=== PATIENT | female | born 1990 | race African-American/Black ===

== ENCOUNTER 2016-11-02 03:45 | Emergency (ER) | payer MEDICAID ==
[~2016-11-02] VITALS: Ht 160 cm; Wt 65.0 kg
[~2016-11-02 03:45] MED LIST: PRED20 PO; RITO100 PO
[2016-11-02 03:46] VITALS: BP 128/81; PULSE 78; RESP 22; TEMP 97.9; O2SAT 97
[2016-11-02] MEDS ORDERED: SODIUM CHLOR 0.9% 1000 ML INJ 1,000 ML IV SCH (04:10)
[2016-11-02] MEDS ORDERED: SODIUM CHLORIDE 0.9% FLUSH 10 ML FLUSH IV FLUSH PRN (04:15)
[2016-11-02] MEDS ORDERED: KETOROLAC TROMETHAMINE 30 MG/ML (IVP) VIAL IV PUSH ONE (04:15)
[2016-11-02] MEDS ORDERED: MORPHINE SULFATE 4 MG/ML INJ IV PUSH ONE (04:15)
[2016-11-02 04:36] LABS: AUTOMATED NEUTROPHIL # 7.1 TH/MM3 (1.8-7.7); BASOPHIL % 0.5 % (0.0-2.0); EOSINOPHIL # 0.1 TH/MM3 (0-0.4); EOSINOPHIL % 0.7 % (0.0-4.0); HEMATOCRIT 36.4 % (35.0-46.0); LYMPH % 19.5 % (9.0-44.0); LYMPHOCYTE # 1.9 TH/MM3 (1.0-4.8); MEAN CELL VOLUME 101.1 FL (80.0-100.0); MEAN CORPUSCULAR HGB CONC 33.6 % (32.0-36.0); MONO % 7.4 % (0.0-8.0); NEUT % 71.9 % (16.0-70.0); PLATELET COUNT 200 TH/MM3 (150-450); WHITE BLOOD COUNT 9.8 TH/MM3 (4.0-11.0)
[2016-11-02 04:38] LABS: BACTERIA, URINE RARE /hpf; BLOOD, URINE SMALL (NEG); COMMENT (UR) CULTURE INDICATED; CULTURE IF INDICATED CULTURE INDICATED; GLUCOSE,URINE NEG (NEG); HYALINE CAST, URINE 13 /lpf (RARE); KETONE, URINE NEG (NEG); MUCUS URINE FEW /lpf (OCC); NITRITE,URINE NEG (NEG); PH, URINE 6.5 (5.0-8.5); SQUAMOUS EPITHELIAL CELL URINE 3 /hpf (0-5); URINE COLOR YELLOW (YELLW/STRAW)
[2016-11-02 04:40] LABS: HEMO FLAGS AUTO DIFF
--- NOTE | 2016-11-02 04:40 | PD ---
HPI Chief Complaint: Abdominal Pain Time Seen by Provider: 04:06 Travel History International Travel<30 days: No Contact w/Intl Traveler<30days: No Traveled to known affect area: No History of Present Illness HPI This is a 26-year-old female who presents to the emergency department with severe pain in her lower abdomen, constant for a day and a half, feeling like contractions. She also says she's had a foul-smelling discharge from her vagina. She denies any fevers or chills. Over the past week she's had some lower abdominal cramping but it got must worse in the past day. She doesn' t think she is because she's had intermittent spotting over the past several months but she's been under a lot of stress and she says maybe she could be about 3-4 months she's not sure. She does have HIV and doesn' t take any antiretrovirals. She has 4 children. PFSH Past Medical History Heart Rhythm Problems: No Cardiovascular Problems: No Chest Pain: No Congestive Heart Failure: No Diminished Hearing: No Musculoskeletal: No Neurologic: No ?: Unknown LMP: 07/18/16 : 4 Para: 4 Past Surgical History Section: No Social History Alcohol Use: Yes (occasional) Tobacco Use: Yes Substance Use: No Allergies-Medications (Allergen,Severity, Reaction): Coded Allergies: White Fish (Verified Allergy, Intermediate, 11/02/16) Uncoded Allergies: fish (Allergy, Severe, Swelling, 01/23/16) Reported Meds & Prescriptions Reported Meds & Active Scripts Active Prednisone 20 Mg Tab 40 Mg PO DAILY 3 Days Reported Norvir (Ritonavir) 100 Mg Cap 300 Mg PO DAILY Review of Systems Except as stated in HPI: all other systems reviewed are Neg Physical Exam Narrative GENERAL: Crying in pain, restless in the bed SKIN: Focused skin assessment warm and dry. HEAD: Atraumatic. Normocephalic. EYES: Pupils equal and round. No injection or drainage. ENT: Moist mucous membranes NECK: Trachea midline. CARDIOVASCULAR: Regular rate and rhythm. No murmur appreciated. RESPIRATORY: Clear to auscultation. Breath sounds equal bilaterally. GASTROINTESTINAL: Abdomen soft, tender to palpation in the lower abdomen with guarding. 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 NEUROLOGICAL: Awake and alert. No obvious cranial nerve deficits. Moving all extremities. PSYCHIATRIC: Appropriate mood and affect; insight and judgment normal. Data Data Last Documented VS Vital Signs Date Time Temp Pulse Resp B/P Pulse Ox O2 Delivery O2 Flow Rate FiO2 11/02/16 03:46 97.9 78 22 128/81 97 Room Air Orders Complete Blood Count With Diff (11/02/16 04:10) Comprehensive Metabolic Panel (11/02/16 04:10) Lipase (11/02/16 04:10) Urinalysis - C+S If Indicated (11/02/16 04:10) Iv Access Insert/Monitor (11/02/16 04:10) Ecg Monitoring (11/02/16 04:10) Oximetry (11/02/16 04:10) Morphine Inj (Morphine Inj) (11/02/16 04:15) Sodium Chlor 0.9% 1000 Ml Inj (Ns 1000 M (11/02/16 04:10) Sodium Chloride 0.9% Flush (Ns Flush) (11/02/16 04:15) Ed Urine Pregnancytest Poc (11/02/16 04:10) Ketorolac Inj (Toradol Inj) (11/02/16 04:15) Ed Poc Ultrasound (11/02/16 ) Us Pelvis (Ques Preg/Ectopic) (11/02/16 ) Blood Culture (11/02/16 04:35) Ondansetron Inj (Zofran Inj) (11/02/16 04:45) Urine Culture (11/02/16 04:20) Morphine Inj (Morphine Inj) (11/02/16 04:45) Wet Prep Profile (11/02/16 04:52) Gc And Chlamydia Pcr (11/02/16 04:52) Beta Hcg (Quant/Titer) (11/02/16 05:28) Cefoxitin Inj (Mefoxin Inj) (11/02/16 05:45) Azithromycin Powd Pack (Zithromax Powd P (11/02/16 05:45) Sodium Chlor 0.9% 1000 Ml Inj (Ns 1000 M (11/02/16 05:45) Labs Laboratory Tests Test 11/02/16 11/02/16 04:20 04:30 White Blood Count 9.8 TH/MM3 Red Blood Count 3.60 MIL/MM3 Hemoglobin 12.2 GM/DL Hematocrit 36.4 % Mean Corpuscular Volume 101.1 FL Mean Corpuscular Hemoglobin 34.0 PG Mean Corpuscular Hemoglobin 33.6 % Concent Red Cell Distribution Width 13.0 % Platelet Count 200 TH/MM3 Mean Platelet Volume 8.9 FL Neutrophils (%) (Auto) 71.9 % Lymphocytes (%) (Auto) 19.5 % Monocytes (%) (Auto) 7.4 % Eosinophils (%) (Auto) 0.7 % Basophils (%) (Auto) 0.5 % Neutrophils # (Auto) 7.1 TH/MM3 Lymphocytes # (Auto) 1.9 TH/MM3 Monocytes # (Auto) 0.7 TH/MM3 Eosinophils # (Auto) 0.1 TH/MM3 Basophils # (Auto) 0.0 TH/MM3 CBC Comment AUTO DIFF Differential Comment AUTO DIFF CONFIRMED Platelet Estimate NORMAL Platelet Morphology Comment NORMAL Urine Color YELLOW Urine Turbidity HAZY Urine pH 6.5 Urine Specific [place] 1.033 Urine Protein 100 mg/dL Urine Glucose (UA) NEG mg/dL Urine Ketones NEG mg/dL Urine Occult Blood SMALL Urine Nitrite NEG Urine Bilirubin NEG Urine Urobilinogen 2.0 MG/DL Urine Leukocyte Esterase LARGE Urine RBC 21 /hpf Urine WBC 33 /hpf Urine Squamous Epithelial 3 /hpf Cells Urine Bacteria RARE /hpf Urine Hyaline Casts 13 /lpf Urine Mucus FEW /lpf Microscopic Urinalysis Comment CULTURE INDICATED Sodium Level 136 MEQ/L Potassium Level 3.8 MEQ/L Chloride Level 102 MEQ/L Carbon Dioxide Level 24.4 MEQ/L Anion Gap 10 MEQ/L Blood Urea Nitrogen 12 MG/DL Creatinine 0.89 MG/DL Estimat Glomerular Filtration 93 ML/MIN Rate Random Glucose 83 MG/DL Calcium Level 9.2 MG/DL Total Bilirubin 0.3 MG/DL Aspartate Amino Transf 14 U/L (AST/SGOT) Alanine Aminotransferase 19 U/L (ALT/SGPT) Alkaline Phosphatase 108 U/L Total Protein 8.4 GM/DL Albumin 3.3 GM/DL Lipase 63 U/L Human Chorionic Gonadotropin, 974[address] MIU/ML Quant Clue Cells (Wet Prep) PRESENT Vaginal Trichomonas (Wet Prep) NONE SEEN Vaginal Yeast (Wet Prep) NONE SEEN MDM Medical Decision Making Medical Screen Exam Complete: Yes Emergency Medical Condition: Yes Interpretation(s) Afebrile, no tachycardia, normotensive No leukocytosis Electrolytes are reassuring Lipase is normal HCG is 40,000 Urinalysis demonstrates infection Wet prep is positive for clue cells Differential Diagnosis Threatened miscarriage, incomplete miscarriage, complete miscarriage, ectopic , pelvic inflammatory disease, septic Narrative Course This is a 26 year old female who has a history of HIV who presents to the emergency department with severe lower abdominal cramping in the setting of . I performed a bedside ultrasound and she appears to be about 11 weeks with a fetus with normal heart rate. Her pelvic exam is concerning with pooling purulent malodorous fluid in the vault. In the absence of an alternate explanation I'm concerned this is pelvic inflammatory disease given her degree of discomfort and her abnormal pelvic exam. I think in the setting of a viable the patient should be admitted for IV antibiotics. She was given a dose of cefotetan and azithromycin in the emergency department. Formal ultrasound will be obtained at the request of the OB hospitalist. Procedures Procedure Narrative [id number] ultrasound: Intrauterine , active fetus, heart rate is 142 Diagnosis Primary Impression: Threatened miscarriage Additional Impression: Pelvic inflammatory disease Admitting Information Admitting Physician Requests: Observation Lori Chang MD Nov 02, 2016 04:40
[2016-11-02] MEDS ORDERED: MORPHINE SULFATE 8 MG/ML INJ IV PUSH ONE ×2 (04:45→07:45)
[2016-11-02] MEDS ORDERED: ONDANSETRON HCL 4 MG/2 ML VIAL IV ONE (04:45)
[2016-11-02 04:46] LABS: ANION GAP 10 MEQ/L (5-15); AST (GOT) 14 U/L (15-37); BICARBONATE 24.4 MEQ/L (21.0-32.0); BLOOD UREA NITROGEN 12 MG/DL (7-18); CHLORIDE 102 MEQ/L (98-107); GLOMERULAR FILTRATION RATE 93 ML/MIN (>89); POTASSIUM 3.8 MEQ/L (3.5-5.1); SODIUM (NA) 136 MEQ/L (136-145)
[2016-11-02 04:47] LABS: ALT (GPT) 19 U/L (10-53)
[2016-11-02 04:49] LABS: ALKALINE PHOSPHATASE 108 U/L (45-117); TOTAL BILIRUBIN ADULT 0.3 MG/DL (0.2-1.0)
[2016-11-02 05:15] LABS: PLATELET ESTIMATE SMEAR NORMAL (NORMAL); PLATELET MORPHOLOGY NORMAL (NORMAL); SCAN/DIFF AUTO DIFF CONFIRMED
[2016-11-02] MEDS ORDERED: SODIUM CHLOR 0.9% 1000 ML INJ 1,000 ML IV ONE (05:45)
[2016-11-02] MEDS ORDERED: ceFOXitin INJ 2 GM in SODIUM CHLORIDE 0.9% INJ 100 ML IV ONE (05:45)
[2016-11-02] MEDS ORDERED: AZITHROMYCIN PWD FOR SUSP 1 GM PACKET PO ONE (05:45)
[2016-11-02 06:04] LABS: BETA HCG QUANT 40091 MIU/ML (0-5)
[2016-11-02] MEDS ORDERED: MORPHINE SULFATE 4 MG/ML INJ IV ONE (07:30)
--- NOTE | 2016-11-02 07:31 | PD ---
Physical Exam Date Seen by Provider: Nov 02, 2016 Time Seen by Provider: 07:00 Narrative The patient was signed out to me by Dr. Chang changes shift. Please see her H& P for specific details. The patient is and has HIV disease that's gone untreated. The patient had purulent bloody discharge noted in her vaginal vault. The patient will be admitted to the hospital. Ultrasound is pending at this time. She has been premedicated with 2 doses of IVD morphine for pain control. She's also been given antibiotics. Data Data Last Documented VS Vital Signs Date Time Temp Pulse Resp B/P Pulse Ox O2 Delivery O2 Flow Rate FiO2 11/02/16 08:15 85 18 118/78 98 Room Air 11/02/16 03:46 97.9 Orders Complete Blood Count With Diff (11/02/16 04:10) Comprehensive Metabolic Panel (11/02/16 04:10) Lipase (11/02/16 04:10) Urinalysis - C+S If Indicated (11/02/16 04:10) Iv Access Insert/Monitor (11/02/16 04:10) Ecg Monitoring (11/02/16 04:10) Oximetry (11/02/16 04:10) Morphine Inj (Morphine Inj) (11/02/16 04:15) Sodium Chlor 0.9% 1000 Ml Inj (Ns 1000 M (11/02/16 04:10) Sodium Chloride 0.9% Flush (Ns Flush) (11/02/16 04:15) Ed Urine Pregnancytest Poc (11/02/16 04:10) Ketorolac Inj (Toradol Inj) (11/02/16 04:15) Ed Poc Ultrasound (11/02/16 ) Blood Culture (11/02/16 04:35) Ondansetron Inj (Zofran Inj) (11/02/16 04:45) Urine Culture (11/02/16 04:20) Morphine Inj (Morphine Inj) (11/02/16 04:45) Wet Prep Profile (11/02/16 04:52) Gc And Chlamydia Pcr (11/02/16 04:52) Beta Hcg (Quant/Titer) (11/02/16 05:28) Cefoxitin Inj (Mefoxin Inj) (11/02/16 05:45) Azithromycin Powd Pack (Zithromax Powd P (11/02/16 05:45) Sodium Chlor 0.9% 1000 Ml Inj (Ns 1000 M (11/02/16 05:45) Type And Screen (11/02/16 06:54) Us Pelvis (Ques Pr/Ect)W Trans (11/02/16 ) Morphine Inj (Morphine Inj) (11/02/16 07:30) Morphine Inj (Morphine Inj) (11/02/16 07:45) Metronidazole 500 Mg Inj (Flagyl 500 Mg (11/02/16 08:00) Consult Obstetrics (11/02/16 ) (Hub Use Only)Inp Phy Cons/Ref (11/02/16 ) Labs Laboratory Tests Test 11/02/16 11/02/16 11/02/16 04:20 04:30 07:45 White Blood Count 9.8 TH/MM3 Red Blood Count 3.60 MIL/MM3 Hemoglobin 12.2 GM/DL Hematocrit 36.4 % Mean Corpuscular Volume 101.1 FL Mean Corpuscular Hemoglobin 34.0 PG Mean Corpuscular Hemoglobin 33.6 % Concent Red Cell Distribution Width 13.0 % Platelet Count 200 TH/MM3 Mean Platelet Volume 8.9 FL Neutrophils (%) (Auto) 71.9 % Lymphocytes (%) (Auto) 19.5 % Monocytes (%) (Auto) 7.4 % Eosinophils (%) (Auto) 0.7 % Basophils (%) (Auto) 0.5 % Neutrophils # (Auto) 7.1 TH/MM3 Lymphocytes # (Auto) 1.9 TH/MM3 Monocytes # (Auto) 0.7 TH/MM3 Eosinophils # (Auto) 0.1 TH/MM3 Basophils # (Auto) 0.0 TH/MM3 CBC Comment AUTO DIFF Differential Comment AUTO DIFF CONFIRMED Platelet Estimate NORMAL Platelet Morphology Comment NORMAL Urine Color YELLOW Urine Turbidity HAZY Urine pH 6.5 Urine Specific [place] 1.033 Urine Protein 100 mg/dL Urine Glucose (UA) NEG mg/dL Urine Ketones NEG mg/dL Urine Occult Blood SMALL Urine Nitrite NEG Urine Bilirubin NEG Urine Urobilinogen 2.0 MG/DL Urine Leukocyte Esterase LARGE Urine RBC 21 /hpf Urine WBC 33 /hpf Urine Squamous Epithelial 3 /hpf Cells Urine Bacteria RARE /hpf Urine Hyaline Casts 13 /lpf Urine Mucus FEW /lpf Microscopic Urinalysis Comment CULTURE INDICATED Sodium Level 136 MEQ/L Potassium Level 3.8 MEQ/L Chloride Level 102 MEQ/L Carbon Dioxide Level 24.4 MEQ/L Anion Gap 10 MEQ/L Blood Urea Nitrogen 12 MG/DL Creatinine 0.89 MG/DL Estimat Glomerular Filtration 93 ML/MIN Rate Random Glucose 83 MG/DL Calcium Level 9.2 MG/DL Total Bilirubin 0.3 MG/DL Aspartate Amino Transf 14 U/L (AST/SGOT) Alanine Aminotransferase 19 U/L (ALT/SGPT) Alkaline Phosphatase 108 U/L Total Protein 8.4 GM/DL Albumin 3.3 GM/DL Lipase 63 U/L Human Chorionic Gonadotropin, 28766 MIU/ML Quant Clue Cells (Wet Prep) PRESENT Vaginal Trichomonas (Wet Prep) NONE SEEN Vaginal Yeast (Wet Prep) NONE SEEN Blood Type O POSITIVE Antibody Screen NEGATIVE Blood Bank Comment MDM Medical Record Reviewed: Yes Supervised Visit with NADEEM: No Differential Diagnosis Threatened miscarriage versus PID versus placental abruption Narrative Course Lasix year-old female history of HIV disease, who presented with complaints of abdominal pain. The patient did not know she was . Dr. kumar saw her previously ordered a test which showed that she was . A bedside ultrasound was performed by Dr. Salamanca which showed heart tones at that time. A formal ultrasound showed a demise with no heart tones. The patient was seen and evaluated by Dr. Hemphill, OB hospitalist. The patient passed the fetus including the placenta. Dr. Guthrie believes there were no retained products. She is not bleeding now. She has minimal cramps. She does have a UTI as well as bacterial vaginosis. The patient will be discharged with a prescription for Flagyl for the bacterial vaginosis and Macrobid for the UTI. She also be given a prescription for ibuprofen. She'll follow up with Dr. Holt later this week. She also be instructed to follow up with her HIV physician. Diagnosis Primary Impression: Complete miscarriage Additional Impressions: Urinary tract infection Bacterial vaginosis HIV (human immunodeficiency virus infection) Referrals: Joanne Holt MD Additional Instruction: Follow up with your physician for your HIV medication. Follow up with Dr. Holt for outpatient evaluation. Take medication as prescribed. Med/Other Pt SpecificInfo: Prescription(s) given Scripts Ibuprofen 600 Mg [id number] Mg PO Q8HR PRN (PAIN) #20 TAB Ref 0 Prov:Theo Mcdonnell MD 11/02/16 Metronidazole 500 Mg [id number] Mg PO BID #14 TAB Ref 0 Prov:Theo Mcdonnell MD 11/02/16 Nitrofurantoin Monohydrate Macrocrystals (Macrobid)100 Mg [id number] Mg PO BID #14 CAP Ref 0 Prov:Theo Mcdonnell MD 11/02/16 Disposition: 01 DISCHARGE HOME Condition: Stable Theo Mcdonnell MD Nov 02, 2016 07:31
--- NOTE | 2016-11-02 07:39 | RADRPT ---
EXAM DATE/TIME: 11/02/2016 06:45 [facility] COMPARISON: No previous studies available for comparison. INDICATIONS : Pelvic pain and bleeding. LAB(S): Beta-hC MEDICAL HISTORY : . HIV. SURGICAL HISTORY : None. ENCOUNTER: Initial ACUITY: 3 days PAIN SCORE: 10/10 LOCATION: Bilateral pelvis MEASUREMENTS: UTERUS: 14.1 x 8.7 x 6.8 cm ENDOMETRIAL STRIPE: 8 mm RIGHT OVARY: 4.1 x 2.3 x 2.2 cm LEFT OVARY: 2.3 x 2.8 x 2.4 cm FREE FLUID: No CROWN RUMP LENGTH: 4.6 cm = 11 WKS 3 DAYS FHR: 0 BPM FINDINGS: UTERUS: Irregular gestational sac in the lower uterine segment is seen. [place]-rump length measures 4.4 cm cor relates to an 11 week and 3 days gestation. No heart tones. RIGHT OVARY: complex cyst measures 13 x 12 x 10 mm. LEFT OVARY: Ovary contains no mass or significant cystic lesion. MISCELLANEOUS: No free fluid. CONCLUSION: 1. Irregular gestational sac in the lower uterine segment. 2. No heart tones identified in pole, suggesting demise and impending . Freddy Gomez MD on November 02, 2016 at 7:35 Board Certified Radiologist. This report was verified electronically.
[2016-11-02] MEDS ORDERED: metroNIDAZOLE 500 MG INJ 100 ML IV ONE (08:00)
[2016-11-02 08:15] VITALS: BP 118/78; PULSE 85; RESP 18; O2SAT 98
[2016-11-02] MEDS ORDERED: MACR100C2 PO (09:42)
[2016-11-02] MEDS ORDERED: METR500T10 PO (09:42)
[2016-11-02] MEDS ORDERED: IBUP-232 PO (09:42)
--- NOTE | 2016-11-02 10:04 | PD.CONS ---
HPI Chief Complaint abdominal pain Date Seen: Nov 02, 2016 Time Seen: 09:15 (Gordon Dale MD) Travel History International Travel<30 Days: No Contact w/Intl Traveler<30Days: No Known Affected Area: No (Gordon Dale MD) History of Present Illness HPI 26 YO HIV+ female seen in ED with abdominal pain/cramping. ED assessment saw closed cervix with abdominal pain and spotting. Ultrasound confirmed no heartbeat and 11 week gestation. Patient denies fever or chest pain shortness of breath nausea vomiting diarrhea and DVT pain. Para: 4 : 5 (Gordon Dale MD) History Past Medical History Narrative Medical HIV+ non-compliant on HIV meds >6 months (Gordon Dale MD) Obstetric History Obstetric History (Gordno Dale MD) Past Surgical History Surgical History: No Previous Surgery (Gordon Dale MD) Family History Family History: Negative (Gordon Dale MD) Social History Alcohol Use: No Tobacco Use: Yes Substance Abuse: Yes (Gordon Dale MD) Allergies-Medications (Allergen,Severity, Reaction): Coded Allergies: White Fish (Verified Allergy, Intermediate, 11/02/16) Uncoded Allergies: fish (Allergy, Severe, Swelling, 01/23/16) Home Meds Active Scripts Ibuprofen 600 Mg [id number] Mg PO Q8HR PRN (PAIN) #20 TAB Ref 0 Prov:Theo Mcdonnell MD 11/02/16 Metronidazole 500 Mg [id number] Mg PO BID #14 TAB Ref 0 Prov:Theo Mcdonnell MD 11/02/16 Nitrofurantoin Monohydrate Macrocrystals (Macrobid)100 Mg [id number] Mg PO BID #14 CAP Ref 0 Prov:Theo Mcdonnell MD 11/02/16 Prednisone 20 Mg Tab40 Mg PO DAILY 3 Days Ref 0 Prov:Dandre Guaman MD 03/11/16 Reported Medications Ritonavir (Norvir)100 Mg Tah911 Mg PO DAILY #180 CAP Ref 0 03/11/16 Review of Systems Except as stated in HPI: all other systems reviewed are Neg (Gordon Dale MD) Physical Exam Vital Signs Date Time Temp Pulse Resp B/P Pulse Ox O2 Delivery O2 Flow Rate FiO2 11/02/16 08:15 85 18 118/78 98 Room Air 11/02/16 03:46 97.9 78 22 128/81 97 Room Air Narrative GENERAL: Well-nourished, well-developed patient. Tearful. SKIN: Warm and dry. HEAD: Normocephalic and atraumatic. EYES: No scleral icterus. No injection or drainage. ENT: No nasal drainage noted. Mucous membranes pink. Airway patent. NECK: Supple, trachea midline. CARDIOVASCULAR: Regular rate and rhythm without murmurs, gallops, or rubs. RESPIRATORY: Breath sounds equal bilaterally. No accessory muscle use. BREASTS: Bilateral exam showed no masses , no retractions, no nipple discharge. ABDOMEN/GI: Abdomen soft, non-tender no rebound, no guarding GENITOURINARY: External Genitalia: intact and normal in appearance Speculum exam shows open cervix with gestational sac at external cervical os ; gestational sac expelled intact during exam with no further bleeding; no cervical motion tenderness; some cramping and mild suprapubic pain on palpation EXTREMITIES: No cyanosis or edema. BACK: Nontender without obvious deformity. No CVA tenderness. NEUROLOGICAL: Awake and alert. Motor and sensory grossly within normal limits. Five out of 5 muscle strength in all muscle groups. Normal speech. (Gordon Dale MD R1) Data Data Orders Complete Blood Count With Diff (11/02/16 04:10) Comprehensive Metabolic Panel (11/02/16 04:10) Lipase (11/02/16 04:10) Urinalysis - C+S If Indicated (11/02/16 04:10) Iv Access Insert/Monitor (11/02/16 04:10) Ecg Monitoring (11/02/16 04:10) Oximetry (11/02/16 04:10) Morphine Inj (Morphine Inj) (11/02/16 04:15) Sodium Chlor 0.9% 1000 Ml Inj (Ns 1000 M (11/02/16 04:10) Sodium Chloride 0.9% Flush (Ns Flush) (11/02/16 04:15) Ed Urine Pregnancytest Poc (11/02/16 04:10) Ketorolac Inj (Toradol Inj) (11/02/16 04:15) Ed Poc Ultrasound (11/02/16 ) Blood Culture (11/02/16 04:35) Ondansetron Inj (Zofran Inj) (11/02/16 04:45) Urine Culture (11/02/16 04:20) Morphine Inj (Morphine Inj) (11/02/16 04:45) Wet Prep Profile (11/02/16 04:52) Gc And Chlamydia Pcr (11/02/16 04:52) Beta Hcg (Quant/Titer) (11/02/16 05:28) Cefoxitin Inj (Mefoxin Inj) (11/02/16 05:45) Azithromycin Powd Pack (Zithromax Powd P (11/02/16 05:45) Sodium Chlor 0.9% 1000 Ml Inj (Ns 1000 M (11/02/16 05:45) Type And Screen (11/02/16 06:54) Us Pelvis (Ques Pr/Ect)W Trans (11/02/16 ) Morphine Inj (Morphine Inj) (11/02/16 07:30) Morphine Inj (Morphine Inj) (11/02/16 07:45) Metronidazole 500 Mg Inj (Flagyl 500 Mg (11/02/16 08:00) Consult Obstetrics (11/02/16 ) (Hub Use Only)Inp Phy Cons/Ref (11/02/16 ) Labs Laboratory Tests Test 11/02/16 11/02/16 11/02/16 04:20 04:30 07:45 White Blood Count 9.8 Red Blood Count 3.60 Hemoglobin 12.2 Hematocrit 36.4 Mean Corpuscular Volume 101.1 Mean Corpuscular Hemoglobin 34.0 Mean Corpuscular Hemoglobin 33.6 Concent Red Cell Distribution Width 13.0 Platelet Count 200 Mean Platelet Volume 8.9 Neutrophils (%) (Auto) 71.9 Lymphocytes (%) (Auto) 19.5 Monocytes (%) (Auto) 7.4 Eosinophils (%) (Auto) 0.7 Basophils (%) (Auto) 0.5 Neutrophils # (Auto) 7.1 Lymphocytes # (Auto) 1.9 Monocytes # (Auto) 0.7 Eosinophils # (Auto) 0.1 Basophils # (Auto) 0.0 CBC Comment AUTO DIFF Differential Comment AUTO DIFF CONFIRMED Platelet Estimate NORMAL Platelet Morphology Comment NORMAL Urine Color YELLOW Urine Turbidity HAZY Urine pH 6.5 Urine Specific [place] 1.033 Urine Protein 100 Urine Glucose (UA) NEG Urine Ketones NEG Urine Occult Blood SMALL Urine Nitrite NEG Urine Bilirubin NEG Urine Urobilinogen 2.0 Urine Leukocyte Esterase LARGE Urine RBC 21 Urine WBC 33 Urine Squamous Epithelial 3 Cells Urine Bacteria RARE Urine Hyaline Casts 13 Urine Mucus FEW Microscopic Urinalysis Comment CULTURE INDICATED Sodium Level 136 Potassium Level 3.8 Chloride Level 102 Carbon Dioxide Level 24.4 Anion Gap 10 Blood Urea Nitrogen 12 Creatinine 0.89 Estimat Glomerular Filtration 93 Rate Random Glucose 83 Calcium Level 9.2 Total Bilirubin 0.3 Aspartate Amino Transf 14 (AST/SGOT) Alanine Aminotransferase 19 (ALT/SGPT) Alkaline Phosphatase 108 Total Protein 8.4 Albumin 3.3 Lipase 63 Human Chorionic Gonadotropin, [id number] Quant Clue Cells (Wet Prep) PRESENT Vaginal Trichomonas (Wet Prep) NONE SEEN Vaginal Yeast (Wet Prep) NONE SEEN Blood Type O POSITIVE Antibody Screen NEGATIVE Blood Bank Comment Date/Time Procedure Status Source Growth 11/02/16 04:50 Aerobic Blood Culture Received Blood Peripheral Pending 11/02/16 04:50 Anaerobic Blood Culture Received Blood Peripheral Pending 11/02/16 04:20 Urine Culture Received Urine Clean Catch Pending (Gordon Dale MD R1) MDM Medical Record Reviewed: Yes Narrative Course / MDM 26-year-old with 11 week gestation and no heartbeat upon ultrasound was miscarried in the ED. - Motrin PRN for pain - No Rhogam required for O+ blood type - F/u with Dr Holt in 1 week - Flagyl 500 mg BID PO x7 days for bacterial vaginosis - Per ED physician [id number], treat UTI - Recommend re-starting HIV medications (Gordon Dale MD R1) Attending Attestation Patient now with complete . POC passed complete and intact with gestational sac. Bleeding subsided and cramping resolved. BV and UTI, but otherwise no evidence of infection. Afebrile, no elevated WBC. No abdominal tenderness to palpation, no guarding or rebound. No uterine tenderness after SAB, no CMT. Patient upset at loss. Reviewed precautions. She will f/u with Dr. Holt. Continue treatment for BV and UTI. Motrin for cramping. Patient seen and examined with. Dr. Dale and Dr. Loving. (Yoselyn Hemphill MD) Diagnosis: Completed AB, bacterial vaginosis, UTI and HIV Disposition: 01 DISCHARGE HOME Condition: Stable Scripts Ibuprofen 600 Mg [id number] Mg PO Q8HR PRN (PAIN) #20 TAB Ref 0 Prov:Theo Mcdonnell MD 11/02/16 Metronidazole 500 Mg [id number] Mg PO BID #14 TAB Ref 0 Prov:Theo Mcdonnell MD 11/02/16 Nitrofurantoin Monohydrate Macrocrystals (Macrobid)100 Mg [id number] Mg PO BID #14 CAP Ref 0 Prov:Theo Mcdonnell MD 11/02/16 Gordon Dale MD R1 Nov 02, 2016 10:04 Yoselyn Hemphill MD Nov 02, 2016 10:26
[2016-11-02 11:25] LABS: CHLAMYDIA PCR DETECTED (NOT DETECT); NEISSERIA PCR DETECTED (NOT DETECT)
== END 2016-11-02 10:50 | disposition home or self-care (01) ==
LOC: NEPC 03:45
DX: O03.5 Genital tract and pelvic infection following complete or unspecified spontaneous abortion (principal); O03.88 Urinary tract infection following complete or unspecified spontaneous abortion; B96.89 Other specified bacterial agents as the cause of diseases classified elsewhere
CPT/HCPCS: 76700; 76817; 80053; 81001; 83690; 84702; 84703; 85025; 86850; 86900; 86901; 87040; 87086; 87205; 87210; 87491; 87591; 88305; 96361; 96365; 96375; 96376; 99285; J0694; J2270; J2405; J7030

== ENCOUNTER 2016-11-12 19:56 | Inpatient (IN) | payer SELFPAY ==
[~2016-11-12] VITALS: Ht 157.5 cm; Wt 68.0 kg
[~2016-11-12 19:56] MED LIST changes: +IBUP-232 PO; +MACR100C2 PO; +METR500T10 PO
[2016-11-12 19:58] VITALS: BP 140/93; PULSE 115; RESP 20; TEMP 98.5; O2SAT 100
--- NOTE | 2016-11-12 20:26 | PD ---
Physical Exam Time Seen by Provider: 20:25 Narrative 26 y/o hiv+ patient recently here with complete /BV/+chlamydia/ gonorrhea pcr presents today for eval of left flank pain which started 11/02, worse today. Vital signs reviewed. Seen at triage desk. Awaiting bed placement. Data Data Last Documented VS Vital Signs Date Time Temp Pulse Resp B/P Pulse Ox O2 Delivery O2 Flow Rate FiO2 11/12/16 19:58 98.5 115 20 140/93 100 Room Air MDM Medical Record Reviewed: Yes Supervised Visit with NADEEM: Kirby Serrano Nov 12, 2016 20:26
[2016-11-12] MEDS ORDERED: TYLE325T PO (20:53)
[2016-11-12] MEDS ORDERED: SODIUM CHLOR 0.9% 1000 ML INJ 1,000 ML IV SCH (21:01)
[2016-11-12] MEDS ORDERED: MORPHINE SULFATE 8 MG/ML INJ IV PUSH ONE (21:15)
[2016-11-12] MEDS ORDERED: SODIUM CHLORIDE 0.9% FLUSH 10 ML FLUSH IV FLUSH PRN (21:15)
[2016-11-12] MEDS ORDERED: ONDANSETRON HCL 4 MG/2 ML VIAL IVP ONE (21:15)
[2016-11-12 21:37] VITALS: RESP 18; O2SAT 99
[2016-11-12 22:00] LABS: AUTOMATED NEUTROPHIL # 8.5 TH/MM3 (1.8-7.7); BASOPHIL % 0.3 % (0.0-2.0); EOSINOPHIL # 0.1 TH/MM3 (0-0.4); EOSINOPHIL % 1.1 % (0.0-4.0); HEMATOCRIT 32.9 % (35.0-46.0); HEMO FLAGS DIFF FINAL; LYMPH % 13.8 % (9.0-44.0); LYMPHOCYTE # 1.5 TH/MM3 (1.0-4.8); MEAN CELL VOLUME 101.4 FL (80.0-100.0); MEAN CORPUSCULAR HEMOGLOBIN 34.4 PG (27.0-34.0); MONO % 5.7 % (0.0-8.0); NEUT % 79.1 % (16.0-70.0); PLATELET COUNT 397 TH/MM3 (150-450); RED BLOOD COUNT 3.24 MIL/MM3 (4.00-5.30); RED CELL DISTRIBUTION WIDTH 12.9 % (11.6-17.2); WHITE BLOOD COUNT 10.8 TH/MM3 (4.0-11.0)
[2016-11-12] MEDS ORDERED: PROCHLORPERAZINE INJ 10 MG/2 ML VIAL IV PUSH ONE (22:00)
[2016-11-12 22:04] LABS: BLOOD, URINE MOD (NEG); COMMENT (UR) CULTURE INDICATED; CULTURE IF INDICATED CULTURE INDICATED; GLUCOSE,URINE NEG (NEG); KETONE, URINE NEG (NEG); MUCUS URINE FEW /lpf (OCC); NITRITE,URINE NEG (NEG); PH, URINE 7.5 (5.0-8.5); SQUAMOUS EPITHELIAL CELL URINE 6 /hpf (0-5); URINE COLOR LIGHT-BROWN (YELLW/STRAW)
[2016-11-12 22:28] LABS: ANION GAP 8 MEQ/L (5-15); AST (GOT) 11 U/L (15-37); BICARBONATE 26.5 MEQ/L (21.0-32.0); BLOOD UREA NITROGEN 14 MG/DL (7-18); CHLORIDE 104 MEQ/L (98-107); GLOMERULAR FILTRATION RATE 98 ML/MIN (>89); SODIUM (NA) 138 MEQ/L (136-145)
[2016-11-12 22:29] LABS: ALT (GPT) 12 U/L (10-53)
[2016-11-12 22:33] LABS: ALKALINE PHOSPHATASE 95 U/L (45-117); BETA HCG QUANT 102 MIU/ML (0-5); TOTAL BILIRUBIN ADULT 0.2 MG/DL (0.2-1.0)
[2016-11-12] MEDS ORDERED: IOHEXOL 350 MG/ML 10 ML VIAL (for RAD DIAG) IV ONE (22:58)
--- NOTE | 2016-11-12 23:19 | RADRPT ---
EXAM DATE/TIME: 11/12/2016 22:46 [facility] COMPARISON: US PELVIS (QUEST PREG/ECTOPIC) W/TRANSVAG, November 02, 2016, 6:45. INDICATIONS : Patient complains of left flank pain. IV CONTRAST: 90 cc Omnipaque 350 (iohexol) IV ORAL CONTRAST: No oral contrast ingested. RADIATION DOSE: 5.89 CTDIvol (mGy) MEDICAL HISTORY : HIV. SURGICAL HISTORY : None. ENCOUNTER: Initial ACUITY: 1 day PAIN SCALE: 5/10 LOCATION: Left flank TECHNIQUE: Volumetric scanning of the abdomen and pelvis was performed. Using automated exposure control and ad justment of the mA and/or kV according to patient size, radiation dose was kept as low as reasonably achievable to obtain optimal diagnostic quality images. DICOM format image data is available electro nically for review and comparison. FINDINGS: LOWER LUNGS: The visualized lower lungs are clear. LIVER: Homogeneous density without lesion. There is no dilation of the biliary tree. Intermediate density i n the dependent portion of the gallbladder likely residing gallstones. No pericholecystic inflammator y changes. SPLEEN: Normal size without lesion. PANCREAS: Within normal limits. KIDNEYS: Normal in size and shape. There is no mass, stone or hydronephrosis. ADRENAL GLANDS: Within normal limits. VASCULAR: There is no aortic aneurysm. BOWEL/MESENTERY: No evidence of bowel dilatation. No free air or free fluid. Appendix within normal limits. ABDOMINAL WALL: Within normal limits. RETROPERITONEUM: There is no lymphadenopathy. BLADDER: No wall thickening or mass. REPRODUCTIVE: Elongated septated cystic area in the left adnexal region measuring 7.8 x 2.3 cm. Diffuse stranding o pacity is seen in the intra-abdominal and intrapelvic fat, nonspecific. INGUINAL: There is no lymphadenopathy or hernia. MUSCULOSKELETAL: Within normal limits for patient age. CONCLUSION: 1. Elongated 7 x 2 cm septated cystic area in the left adnexa. Suspicious for hydrosalpinx or tubo-ov lake abscess in the proper clinical context. This finding is not seen on recent ultrasound of 017. No free fluid. 2. Likely gallstones in the gallbladder. Tyler Larkin MD on November 12, 2016 at 23:04 Board Certified Radiologist. This report was verified electronically.
[2016-11-12] MEDS ORDERED: ceFOXitin INJ 1 GM in SODIUM CHLORIDE 0.9% INJ 100 ML IV ONE (23:45)
[2016-11-12] MEDS ORDERED: DOXYCYCLINE INJ 100 MG in SODIUM CHLORIDE 0.9% INJ 100 ML IV ONE (23:45)
[2016-11-13] VITALS (8 sets, daily range): BP systolic 124–137; BP diastolic 63–96; PULSE 82–99; RESP 16–18; TEMP 98.2–100.6; O2SAT 96–100
--- NOTE | 2016-11-13 01:02 | RADRPT ---
EXAM DATE/TIME: 11/12/2016 23:53 [facility] COMPARISON: CT ABDOMEN & PELVIS W CONTRAST, November 12, 2016, 22:46. INDICATIONS : Pelvic pain, abnormal Cat Scan. MEDICAL HISTORY : HIV. SURGICAL HISTORY : None. ENCOUNTER: Initial ACUITY: 1 week PAIN SCORE: 6/10 LOCATION: Bilateral pelvis MEASUREMENTS: UTERUS: 9.2 x 6.8 x 4.3 cm ENDOMETRIAL STRIPE: 15 mm RIGHT OVARY: 3.1 x 1.9 x 2.2 cm LEFT OVARY: 7.9 x 6.2 x 4.4 cm FINDINGS: UTERUS: Thickened heterogeneous endometrial stripe. Evidence of recent seen on prior ultrasound of 11/02/2016. No retained anatomy identified. RIGHT OVARY: Ovary contains no mass or significant cystic lesion. LEFT OVARY: Complex cystic mass in the left adnexa measuring 7.9 x 6.2 x 4.4 cm. This likely represents the left ovary. Color Doppler flow is seen within this area. Adjacent elongated complex cystic area in the cul -de-sac. Findings correlate with complex cystic area identified on CT. CONCLUSION: 1. Complex mixed echogenicity mass in the left adnexa with internal color Doppler flow and surroundin g increased color Doppler flow. Adjacent elongated complex area in the cul-de-sac. Findings are suspi cious for tubo-ovarian abscess in the proper clinical setting. Ovarian torsion would also be in the d ifferential diagnosis but less likely given the presence of color Doppler flow and Doppler waveforms. 2. Mildly thickened and heterogeneous endometrial stripe nonspecific. Tyler Larkin MD on November 13, 2016 at 0:48 Board Certified Radiologist. This report was verified electronically.
--- NOTE | 2016-11-13 01:41 | PD ---
HPI Chief Complaint: Flank/Kidney Pain Time Seen by Provider: 20:42 Travel History International Travel<30 days: No Contact w/Intl Traveler<30days: No Traveled to known affect area: No History of Present Illness HPI The patient is 26 years old. She has left lower abdomen pain and left flank pain. She states it has been constant for about 3 weeks. She began vomiting 2 days ago which led to her ER evaluation tonight. The pain is constant and worse with palpation. She reports occasional vaginal discharge. She was seen here 10 days ago and diagnosed with a complete miscarriage. Additionally she was diagnosed with bacterial vaginosis, UTI and she had positive chlamydia and gonorrhea serologies. Patient at the time of evaluation with holds a history of HIV. Most recent CD4 count on record is from 3 years ago and at that time as well as 1400. 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) Allergies-Medications (Allergen,Severity, Reaction): Coded Allergies: White Fish (Verified Allergy, Intermediate, 11/12/16) Uncoded Allergies: fish (Allergy, Severe, Swelling, 01/23/16) Reported Meds & Prescriptions Reported Meds & Active Scripts Active Ibuprofen 600 Mg Tab 600 Mg PO Q8HR PRN Metronidazole 500 Mg Tab 500 Mg PO BID Macrobid (Nitrofurantoin Monoh/Nitrofur Macro) 100 Mg Cap 100 Mg PO BID Reported Tylenol (Acetaminophen) 325 Mg Tab 1,000 Mg PO Q6H PRN Review of Systems Except as stated in HPI: all other systems reviewed are Neg Physical Exam Narrative GENERAL: 26-year-old female well-nourished well-developed moderate distress vomiting on the floor SKIN: Focused skin assessment warm/dry. HEAD: Atraumatic. Normocephalic. EYES: Pupils equal and round. No scleral icterus. No injection or drainage. ENT: No nasal bleeding or discharge. Mucous membranes pink and moist. NECK: Trachea midline. No JVD. CARDIOVASCULAR: Regular rate and rhythm. No murmur appreciated. RESPIRATORY: No accessory muscle use. Clear to auscultation. Breath sounds equal bilaterally. GASTROINTESTINAL: There is tenderness to palpation throughout the abdomen the most prominent on the left side. There is tenderness to percussion of the left flank. MUSCULOSKELETAL: No obvious deformities. No clubbing. No cyanosis. No edema. NEUROLOGICAL: Awake and alert. No obvious cranial nerve deficits. Motor grossly within normal limits. Normal speech. PSYCHIATRIC: Appropriate mood and affect; insight and judgment normal. Data Data Last Documented VS Vital Signs Date Time Temp Pulse Resp B/P Pulse Ox O2 Delivery O2 Flow Rate FiO2 11/13/16 00:41 98.4 92 16 135/77 100 Room Air Vital signs reviewed Orders Beta Hcg (Quant/Titer) (11/12/16 21:01) Complete Blood Count With Diff (11/12/16 21:01) Comprehensive Metabolic Panel (11/12/16 21:01) Lipase (11/12/16 21:01) Lactic Acid (11/12/16 21:01) Urinalysis - C+S If Indicated (11/12/16 21:01) Iv Access Insert/Monitor (11/12/16 21:01) Ecg Monitoring (11/12/16 21:01) Oximetry (11/12/16 21:01) Ondansetron Inj (Zofran Inj) (11/12/16 21:15) Sodium Chlor 0.9% 1000 Ml Inj (Ns 1000 M (11/12/16 21:01) Sodium Chloride 0.9% Flush (Ns Flush) (11/12/16 21:15) Morphine Inj (Morphine Inj) (11/12/16 21:15) Ct Abd/Pel W Iv Contrast(Rout) (11/12/16 21:03) Prochlorperazine Inj (Compazine Inj) (11/12/16 22:00) Urine Culture (11/12/16 21:20) Iohexol 350 Inj (Omnipaque 350 Inj) (11/12/16 22:58) Doxycycline Inj (Vibramycin Inj) (11/12/16 23:45) Cefoxitin Inj (Mefoxin Inj) (11/12/16 23:45) Us Pelvis Comp W Dop Transvag (11/12/16 23:32) Place In Observation (11/13/16 ) Vital Signs (Adult) Q4H (11/13/16 01:43) Activity Oob Ad Susie (11/13/16 ) Diet Regular Basic (11/13/16 Breakfast) Sodium Chloride 0.9% Flush (Ns Flush) (11/13/16 01:45) Sodium Chloride 0.9% Flush (Ns Flush) (11/13/16 09:00) Metronidazole 500 Mg Inj (Flagyl 500 Mg (11/13/16 02:00) Cefoxitin Inj (Mefoxin Inj) (11/13/16 06:00) Acetaminophen (Tylenol) (11/13/16 01:45) Ibuprofen (Motrin) (11/13/16 01:45) Ketorolac Inj (Toradol Inj) (11/13/16 01:45) Acetamin-Hydrocod 325-5 Mg ([place] 5-325 (11/13/16 01:45) Morphine Inj (Morphine Inj) (11/13/16 01:45) Ondansetron Inj (Zofran Inj) (11/13/16 01:45) Complete Blood Count With Diff (11/14/16 06:00) Westergren Sedimentation Rate (11/13/16 01:43) Vte Prophylaxis Not Indicated (11/13/16 01:43) Admit Order (Ed Use Only) (11/13/16 01:52) Labs Laboratory Tests Test 11/12/16 21:20 White Blood Count 10.8 TH/MM3 Red Blood Count 3.24 MIL/MM3 Hemoglobin 11.2 GM/DL Hematocrit 32.9 % Mean Corpuscular Volume 101.4 FL Mean Corpuscular Hemoglobin 34.4 PG Mean Corpuscular Hemoglobin 34.0 % Concent Red Cell Distribution Width 12.9 % Platelet Count 397 TH/MM3 Mean Platelet Volume 7.9 FL Neutrophils (%) (Auto) 79.1 % Lymphocytes (%) (Auto) 13.8 % Monocytes (%) (Auto) 5.7 % Eosinophils (%) (Auto) 1.1 % Basophils (%) (Auto) 0.3 % Neutrophils # (Auto) 8.5 TH/MM3 Lymphocytes # (Auto) 1.5 TH/MM3 Monocytes # (Auto) 0.6 TH/MM3 Eosinophils # (Auto) 0.1 TH/MM3 Basophils # (Auto) 0.0 TH/MM3 CBC Comment DIFF FINAL Differential Comment Urine Color LIGHT-BROWN Urine Turbidity HAZY Urine pH 7.5 Urine Specific [place] 1.030 Urine Protein 30 mg/dL Urine Glucose (UA) NEG mg/dL Urine Ketones NEG mg/dL Urine Occult Blood MOD Urine Nitrite NEG Urine Bilirubin NEG Urine Urobilinogen 2.0 MG/DL Urine Leukocyte Esterase LARGE Urine RBC 11 /hpf Urine WBC 44 /hpf Urine Squamous Epithelial 6 /hpf Cells Urine Amorphous Sediment RARE Urine Mucus FEW /lpf Microscopic Urinalysis Comment CULTURE INDICATED Sodium Level 138 MEQ/L Potassium Level 4.0 MEQ/L Chloride Level 104 MEQ/L Carbon Dioxide Level 26.5 MEQ/L Anion Gap 8 MEQ/L Blood Urea Nitrogen 14 MG/DL Creatinine 0.85 MG/DL Estimat Glomerular Filtration 98 ML/MIN Rate Random Glucose 109 MG/DL Lactic Acid Level 0.7 mmol/L Calcium Level 9.3 MG/DL Total Bilirubin 0.2 MG/DL Aspartate Amino Transf 11 U/L (AST/SGOT) Alanine Aminotransferase 12 U/L (ALT/SGPT) Alkaline Phosphatase 95 U/L Total Protein 8.6 GM/DL Albumin 3.0 GM/DL Lipase 67 U/L Human Chorionic Gonadotropin, 102 MIU/ML Quant MDM Medical Decision Making Medical Screen Exam Complete: Yes Emergency Medical Condition: Yes Medical Record Reviewed: Yes Differential Diagnosis IUP, UTI, ectopic , ov torsion, appendicitis, TOA, cervicitis, BV, Trichomoniasis, ov cyst, hernia, mittelschmerz, pain from menstruation Narrative Course CBC & BMP Diagram 11/12/16 21:20 LFTs essentially normal Lipase 67 Beta 102 LA 0.7 UA: possible UTI Last 24 hours Impressions Abdomen/Pelvis CT 11/12/162102 Signed Impressions: Service Date/Time: October 22:46 - CONCLUSION: 1. Elongated 7 x 2 cm septated cystic area in the left adnexa. Suspicious for hydrosalpinx or tubo-ovarian abscess in the proper clinical context. This finding is not seen on recent ultrasound of 11/02/2016. No free fluid. 2. Likely gallstones in the gallbladder. Tyler Larkin MD Pelvic Sono: concerning for TOA Cefoxitin and doxycycline started. The patient received 4 mg of morphine shortly following arrival in remained comfortable throughout her ER stay. Dr. Carrlilo of obstetrics/gynecology evaluated the patient's bedside and will admit to his service. Diagnosis Primary Impression: Tubo-ovarian abscess Admitting Information Admitting Physician Requests: Admit Link Gregg MD Nov 13, 2016 01:41
[2016-11-13] MEDS ORDERED: SODIUM CHLORIDE 0.9% FLUSH 5 ML FLUSH IV FLUSH PRN (01:45)
[2016-11-13] MEDS ORDERED: MORPHINE SULFATE 4 MG/ML INJ IV PRN (01:45)
[2016-11-13] MEDS ORDERED: KETOROLAC TROMETHAMINE 60 MG/2 ML (IM) VIAL IM PRN (01:45)
[2016-11-13] MEDS ORDERED: IBUPROFEN 600 MG TAB PO PRN (01:45)
[2016-11-13] MEDS ORDERED: ACETAMINOPHEN 325 MG TAB PO PRN (01:45)
[2016-11-13] MEDS ORDERED: ACETAMINOPHEN/HYDROcodone 325 MG/5 MG TAB PO PRN (01:45)
[2016-11-13] MEDS: metroNIDAZOLE 500 MG INJ 100 ML IV SCH ×3 (02:02→17:09)
--- NOTE | 2016-11-13 02:02 | HHI.HP ---
HPI Chief Complaint Left flank and low back pain Date Seen: Nov 13, 2016 Travel History International Travel<30 Days: No Contact w/Intl Traveler<30Days: No Known Affected Area: No History of Present Illness HPI Patient is 26-year-old black female Ab1 who is week and a half out from a complete spontaneous seen here in our emergency room. After discharge she was sent home on no oral Flagyl. Patient continued to have pain in the pelvis and low back and presented today with the same pain. CT and ultrasound show a 7 x 3 cm cystic mass in the pelvis consistent with possible tubo-ovarian abscess. Patient denies running fever but has had nausea and vomiting today. She has minimal to no vaginal bleeding but does discharge Para: 4 : 5 Miscarriage: 1 History Past Medical History Narrative Medical Patient is HIV positive and not compliant with taking her retroviral medications Week and a half ago patient miscarried in the emergency room and passed all the gestational sac and embryo there and did not need a D&C sent home on oral Flagyl History of positive chlamydia recently was treated Obstetric History Obstetric History 4 vaginal deliveries Social History Alcohol Use: Yes Tobacco Use: Yes Substance Abuse: Yes Allergies-Medications (Allergen,Severity, Reaction): Coded Allergies: White Fish (Verified Allergy, Intermediate, 11/12/16) Uncoded Allergies: fish (Allergy, Severe, Swelling, 01/23/16) Home Meds Active Scripts Ibuprofen 600 Mg Wid866 Mg PO Q8HR PRN (PAIN) #20 TAB Ref 0 Prov:Theo Mcdonnell MD 11/02/16 Metronidazole 500 Mg [id number] Mg PO BID #14 TAB Ref 0 Prov:Theo Mcdonnell MD 11/02/16 Nitrofurantoin Monohydrate Macrocrystals (Macrobid)100 Mg Emo450 Mg PO BID #14 CAP Ref 0 Prov:Theo Mcdonnell MD 11/02/16 Reported Medications Acetaminophen (Tylenol)325 Mg Tab1,000 Mg PO Q6H PRN (PAIN SCALE 3 TO 5) Ref 0 11/12/16 Discontinued Reported Medications Ritonavir (Norvir)100 Mg Cpx442 Mg PO DAILY #180 CAP Ref 0 03/11/16 Discontinued Scripts Prednisone 20 Mg Tab40 Mg PO DAILY 3 Days Ref 0 Prov:Dandre Guaman MD 03/11/16 Review of Systems General / Constitutional: No: Fever, Weight Gain, Chills, Other Eyes: No: Diploplia, Blurred Vision, Visual changes, Pain, Photophobia HENT: No: Headaches, Vertigo, Lightheadedness Cardiovascular: No: Irregular Rhythm, Chest Pain or Discomfort, Palpitations, Tachycardia, Syncope, Varicosities, Edema, Cyanosis Respiratory: No: Cough, Short of Breath, Other Gastrointestinal: Abdominal Pain, No: Nausea, Vomiting, Diarrhea Genitourinary: No: Decreased Urinary Output, Oliguria Musculoskeletal: No: Limited ROM, Weakness, Cramping, Edema, Pain Skin: No Rash, No Itching, No Dryness, No Lumps, No Change in Pigmentation, No Change in Nails, No Alopecia, No Lesions Neurologic: No: Weakness, Dizziness, Syncope, Focal Abnormalities, Coordination Problem, Headache, Slurred Speech, Seizures Psychiatric: No: Depression, Suicidal Ideations, Homicidal Ideation Endocrine: No: Heat Intolerance, Cold Intolerance, Polydipsia, Polyuria, Other Physical Exam Vital Signs Date Time Temp Pulse Resp B/P Pulse Ox O2 Delivery O2 Flow Rate FiO2 11/13/16 00:41 98.4 92 16 135/77 100 Room Air 11/12/16 22:01 18 11/12/16 21:37 18 99 Room Air 11/12/16 21:03 16 11/12/16 19:58 98.5 115 20 140/93 100 Room Air Narrative GENERAL: Well-nourished, well-developed patient. SKIN: Warm and dry. HEAD: Normocephalic and atraumatic. EYES: No scleral icterus. No injection or drainage. ENT: No nasal drainage noted. Mucous membranes pink. Airway patent. NECK: Supple, trachea midline. No JVD. CARDIOVASCULAR: Regular rate and rhythm without murmurs, gallops, or rubs. RESPIRATORY: Breath sounds equal bilaterally. No accessory muscle use. BREASTS: Bilateral exam showed no masses , no retractions, no nipple discharge. ABDOMEN/GI: Abdomen soft, 1+-tender, bowel sounds present, no rebound, no guarding no CVA tenderness slight tenderness noted in the left low lumbar area GENITOURINARY: External Genitalia: intact and normal in appearance BUS glands: [-] Cervix: [no -Cervical motion tenderness] Uterus is nontender no adnexal masses palpated in not much pain noted in either adnexa EXTREMITIES: No cyanosis or edema. BACK: Nontender without obvious deformity. No CVA tenderness. NEUROLOGICAL: Awake and alert. Motor and sensory grossly within normal limits. Five out of 5 muscle strength in all muscle groups. Normal speech. Data Data Orders Beta Hcg (Quant/Titer) (11/12/16 21:01) Complete Blood Count With Diff (11/12/16 21:01) Comprehensive Metabolic Panel (11/12/16 21:01) Lipase (11/12/16 21:01) Lactic Acid (11/12/16 21:01) Urinalysis - C+S If Indicated (11/12/16 21:01) Iv Access Insert/Monitor (11/12/16 21:01) Ecg Monitoring (11/12/16 21:01) Oximetry (11/12/16 21:01) Ondansetron Inj (Zofran Inj) (11/12/16 21:15) Sodium Chlor 0.9% 1000 Ml Inj (Ns 1000 M (11/12/16 21:01) Sodium Chloride 0.9% Flush (Ns Flush) (11/12/16 21:15) Morphine Inj (Morphine Inj) (11/12/16 21:15) Ct Abd/Pel W Iv Contrast(Rout) (11/12/16 21:03) Prochlorperazine Inj (Compazine Inj) (11/12/16 22:00) Urine Culture (11/12/16 21:20) Iohexol 350 Inj (Omnipaque 350 Inj) (11/12/16 22:58) Doxycycline Inj (Vibramycin Inj) (11/12/16 23:45) Cefoxitin Inj (Mefoxin Inj) (11/12/16 23:45) Us Pelvis Comp W Dop Transvag (11/12/16 23:32) Place In Observation (11/13/16 ) Vital Signs (Adult) Q4H (11/13/16 01:43) Activity Oob Ad Susie (11/13/16 ) Diet Regular Basic (11/13/16 Breakfast) Sodium Chloride 0.9% Flush (Ns Flush) (11/13/16 01:45) Sodium Chloride 0.9% Flush (Ns Flush) (11/13/16 09:00) Metronidazole 500 Mg Inj (Flagyl 500 Mg (11/13/16 02:00) Cefoxitin Inj (Mefoxin Inj) (11/13/16 06:00) Acetaminophen (Tylenol) (11/13/16 01:45) Ibuprofen (Motrin) (11/13/16 01:45) Ketorolac Inj (Toradol Inj) (11/13/16 01:45) Acetamin-Hydrocod 325-5 Mg ([place] 5-325 (11/13/16 01:45) Morphine Inj (Morphine Inj) (11/13/16 01:45) Ondansetron Inj (Zofran Inj) (11/13/16 01:45) Complete Blood Count With Diff (11/14/16 06:00) Westergren Sedimentation Rate (11/13/16 01:43) Vte Prophylaxis Not Indicated (11/13/16 01:43) Admit Order (Ed Use Only) (11/13/16 01:52) Labs Laboratory Tests Test 11/12/16 21:20 White Blood Count 10.8 Red Blood Count 3.24 Hemoglobin 11.2 Hematocrit 32.9 Mean Corpuscular Volume 101.4 Mean Corpuscular Hemoglobin 34.4 Mean Corpuscular Hemoglobin 34.0 Concent Red Cell Distribution Width 12.9 Platelet Count 397 Mean Platelet Volume 7.9 Neutrophils (%) (Auto) 79.1 Lymphocytes (%) (Auto) 13.8 Monocytes (%) (Auto) 5.7 Eosinophils (%) (Auto) 1.1 Basophils (%) (Auto) 0.3 Neutrophils # (Auto) 8.5 Lymphocytes # (Auto) 1.5 Monocytes # (Auto) 0.6 Eosinophils # (Auto) 0.1 Basophils # (Auto) 0.0 CBC Comment DIFF FINAL Differential Comment Urine Color LIGHT-BROWN Urine Turbidity HAZY Urine pH 7.5 Urine Specific [place] 1.030 Urine Protein 30 Urine Glucose (UA) NEG Urine Ketones NEG Urine Occult Blood MOD Urine Nitrite NEG Urine Bilirubin NEG Urine Urobilinogen 2.0 Urine Leukocyte Esterase LARGE Urine RBC 11 Urine WBC 44 Urine Squamous Epithelial 6 Cells Urine Amorphous Sediment RARE Urine Mucus FEW Microscopic Urinalysis Comment CULTURE INDICATED Sodium Level 138 Potassium Level 4.0 Chloride Level 104 Carbon Dioxide Level 26.5 Anion Gap 8 Blood Urea Nitrogen 14 Creatinine 0.85 Estimat Glomerular Filtration 98 Rate Random Glucose 109 Lactic Acid Level 0.7 Calcium Level 9.3 Total Bilirubin 0.2 Aspartate Amino Transf 11 (AST/SGOT) Alanine Aminotransferase 12 (ALT/SGPT) Alkaline Phosphatase 95 Total Protein 8.6 Albumin 3.0 Lipase 67 Human Chorionic Gonadotropin, 102 Quant Date/Time Procedure Status Source Growth 11/12/16 21:20 Urine Culture Received Urine Random Urine Pending Assessment/Plan Assessment and Plan 26-year-old black female A1 who is 1-2 weeks out from a complete with any pain and tonight as a CT and ultrasound findings consistent with possible tubo-ovarian abscess. Patient was a history of positive chlamydia recently was treated. Positive history of being HIV positive and not take her medications appropriately Plan is admission to hospital for IV antibiotics medicine consult for her HIV status Terence Carrillo II, MD Nov 13, 2016 02:01
[2016-11-13] MEDS: ONDANSETRON HCL 4 MG/2 ML VIAL IV PRN ×2 (04:04→20:34)
[2016-11-13] MEDS: DOXYCYCLINE HYCLATE 100 MG CAP PO SCH ×2 (08:01→20:33)
[2016-11-13] MEDS: SODIUM CHLORIDE 0.9% FLUSH 5 ML FLUSH IV FLUSH SCH ×2 (08:01→20:34)
[2016-11-13] MEDS: ceFOXitin INJ 2,000 GM in SODIUM CHLORIDE 0.9% INJ 100 ML IV SCH ×3 (08:01→17:56)
[2016-11-14] MEDS: metroNIDAZOLE 500 MG INJ 100 ML IV SCH ×3 (01:29→17:46)
[2016-11-14] MEDS: ceFOXitin INJ 2,000 GM in SODIUM CHLORIDE 0.9% INJ 100 ML IV SCH ×4 (01:29→17:46)
[2016-11-14 04:00] VITALS: BP 128/88; PULSE 69; RESP 16; TEMP 97.8; O2SAT 99
[2016-11-14 07:57] LABS: AUTOMATED NEUTROPHIL # 8.9 TH/MM3 (1.8-7.7); BASOPHIL % 0.3 % (0.0-2.0); EOSINOPHIL % 0.1 % (0.0-4.0); HEMATOCRIT 32.5 % (35.0-46.0); HEMO FLAGS DIFF FINAL; LYMPH % 11.4 % (9.0-44.0); LYMPHOCYTE # 1.2 TH/MM3 (1.0-4.8); MEAN CELL VOLUME 99.7 FL (80.0-100.0); MEAN CORPUSCULAR HEMOGLOBIN 34.6 PG (27.0-34.0); MEAN CORPUSCULAR HGB CONC 34.7 % (32.0-36.0); NEUT % 82.2 % (16.0-70.0); PLATELET COUNT 372 TH/MM3 (150-450); RED BLOOD COUNT 3.26 MIL/MM3 (4.00-5.30); RED CELL DISTRIBUTION WIDTH 13.3 % (11.6-17.2); WHITE BLOOD COUNT 10.8 TH/MM3 (4.0-11.0)
[2016-11-14 08:00] VITALS: BP 129/81; PULSE 72; RESP 20; TEMP 97.6; O2SAT 99
[2016-11-14] MEDS: SODIUM CHLORIDE 0.9% FLUSH 5 ML FLUSH IV FLUSH SCH ×2 (08:31→20:07)
[2016-11-14] MEDS: DOXYCYCLINE HYCLATE 100 MG CAP PO SCH ×2 (08:31→20:05)
--- NOTE | 2016-11-14 09:46 | HHI.PR ---
Subjective . Patient had one episode of low-grade fever overnight to 100.6F. Otherwise, patient has been afebrile with vital signs stable. Patient still without leukocytosis. Discussed reason for patient's abdominal pain, diagnosis of gonorrhea and chlamydia, diagnosis of HIV, need for outpatient follow-up, needing to take antiretroviral medications, need for control. Patient informed me that she has both a primary care doctor and infectious disease doctor but has been unable to see them because of problems with her Medicaid. Patient is willing to talk to disease case manager rn. Emphasized to patient that if she wants to have a baby, she should take antiretroviral medications. If she does not want to have a baby, she should be on long-acting control. Offered Depo shot. Patient declined. (Perry Merlos MD R1) Objective . GENERAL: Well-nourished, well-developed female patient. Tired , falling asleep while lying in bed talking to me. No acute distress. SKIN: Warm and dry. No rashes present. HEAD: Normocephalic, atraumatic. EYES: No scleral icterus. No injection or drainage. Extraocular movements intact. NECK: Trachea midline. No obvious meningeal signs. RESPIRATORY: Clear to auscultation. Breath sounds equal bilaterally. No wheezes , rales, or rhonchi. GASTROINTESTINAL: Abdomen soft, non-tender to light palpation, nondistended. No hepato-splenomegaly, or palpable masses. No guarding. MUSCULOSKELETAL: Extremities without clubbing, cyanosis, or edema. No joint tenderness, effusion, or edema noted. No calf tenderness. NEURO: Cranial nerves II through XII grossly intact. No obvious focal neurologic deficits. Moves all extremities well. Normal gait. PSYCH: Flat affect. Normal speech. (Perry Merlos MD R1) Assessment/Plan Diagnosis: (1) Tubo-ovarian abscess (2) HIV (human immunodeficiency virus infection) (3) Complete miscarriage (4) Pelvic inflammatory disease . 26-year-old female A1 who is 1-2 weeks out from a complete who presented with abdominal pain and CT and ultrasound findings consistent with possible tubo-ovarian abscess. Patient was a history of positive gonorrhea, chlamydia, bacterial vaginosis and recently was treated. Patient also with a history of being HIV positive and does not take her medications appropriately. Patient has a primary care doctor and an infectious disease doctor but has been unable to see them due to problems with her health insurance. Case management consult placed Emphasized to patient that if she wants to have a baby, she should take antiretroviral medications. If she does not want to have a baby, she should be on long-acting control. Offered Depo shot. Patient declined. Plan is to continue IV and oral antibiotics as below: Cefoxitin 11/13 to present Metronidazole 11/13 to present Doxycycline 11/13 to present Today is day 2 of antibiotics Continue to monitor for fever and for leukocytosis with CBC every other day Discussed with Dr. Jon. (Perry Merlos MD R1) . Patient seen and evaluated with resident under direct supervision, agree with assessment and plan. (Johnnie Rob MD) Perry Merlos MD R1 Nov 14, 2016 09:46 Johnnie Rob MD Nov 14, 2016 09:53
[2016-11-14] MEDS: ONDANSETRON HCL 4 MG/2 ML VIAL IV PRN ×2 (10:38→15:38)
[2016-11-14 12:00] VITALS: BP 134/95; PULSE 64; RESP 19; TEMP 97.8; O2SAT 99
[2016-11-14 16:00] VITALS: BP 131/83; PULSE 78; RESP 19; TEMP 96.9; O2SAT 98
[2016-11-14 20:00] VITALS: BP 128/89; PULSE 68; RESP 19; TEMP 97.5; O2SAT 96
[2016-11-15] VITALS: BP 108/58; PULSE 62; RESP 18; TEMP 97.6; O2SAT 96
[2016-11-15] MEDS: metroNIDAZOLE 500 MG INJ 100 ML IV SCH ×3 (00:30→18:11)
[2016-11-15] MEDS: ceFOXitin INJ 2 GM in SODIUM CHLORIDE 0.9% INJ 100 ML IV SCH ×4 (00:30→18:14)
[2016-11-15 08:00] VITALS: BP 132/92; PULSE 63; RESP 20; TEMP 98; O2SAT 98
--- NOTE | 2016-11-15 08:28 | HHI.PR ---
Subjective . Some nausea but otherwise minimal abdominal pain. Objective . Vital Signs Date Time Temp Pulse Resp B/P Pulse Ox O2 Delivery O2 Flow Rate FiO2 11/15/16 08:00 98.0 63 20 132/92 98 11/13/16 00:41 Room Air Laboratory Tests Test 11/13/16 11/14/16 11:30 07:38 Absolute Lymphocytes (Cell 1143 Immunity Percent CD3 Cells 75 % Absolute CD3 Count 862 Percent CD3-/CD16+/CD56+ Cells 8 % Absolute CD3-/CD16+/CD56+ 94 Count Percent CD4 Cells 37 % Absolute CD4 Count 426 T-Howard/Suppressor Ratio 1.0 Percent CD8 Cells 36 % Absolute CD8 Count 420 Percent CD19 Cells 15 % Absolute CD19 Count 168 White Blood Count 10.8 TH/MM3 Red Blood Count 3.26 MIL/MM3 Hemoglobin 11.3 GM/DL Hematocrit 32.5 % Mean Corpuscular Volume 99.7 FL Mean Corpuscular Hemoglobin 34.6 PG Mean Corpuscular Hemoglobin 34.7 % Concent Red Cell Distribution Width 13.3 % Platelet Count 372 TH/MM3 Mean Platelet Volume 8.1 FL Neutrophils (%) (Auto) 82.2 % Lymphocytes (%) (Auto) 11.4 % Monocytes (%) (Auto) 6.0 % Eosinophils (%) (Auto) 0.1 % Basophils (%) (Auto) 0.3 % Neutrophils # (Auto) 8.9 TH/MM3 Lymphocytes # (Auto) 1.2 TH/MM3 Monocytes # (Auto) 0.6 TH/MM3 Eosinophils # (Auto) 0.0 TH/MM3 Basophils # (Auto) 0.0 TH/MM3 CBC Comment DIFF FINAL Differential Comment Chest: CTA Abdomen: Soft, minimally tender in lower quadrants with deep palpation. No rebound, Good bowel sounds Ext: No edema Assessment/Plan Diagnosis: (1) Pelvic inflammatory disease (2) Tubo-ovarian abscess Plan: No leukocytosis. Patient will need to finish 48hours of IV antibiotics before discharge. (3) Complete miscarriage (4) HIV (human immunodeficiency virus infection) Plan: Patient has continued to refuse medication for treatment. Valery Beltran MD Nov 15, 2016 08:28
[2016-11-15] MEDS ORDERED: PROMETHAZINE INJ 25 MG/ML VIAL IM PRN (08:30)
[2016-11-15] MEDS: DOXYCYCLINE HYCLATE 100 MG CAP PO SCH ×2 (08:42→20:39)
[2016-11-15] MEDS: SODIUM CHLORIDE 0.9% FLUSH 5 ML FLUSH IV FLUSH SCH ×2 (09:00→20:00)
[2016-11-15 12:00] VITALS: BP 123/91; PULSE 81; RESP 18; TEMP 97.3; O2SAT 97
[2016-11-15 16:00] VITALS: BP 130/99; PULSE 68; RESP 20; TEMP 97.3; O2SAT 98
[2016-11-15 20:00] VITALS: BP 16/98; PULSE 107; PULSE 64; TEMP 96.6
[2016-11-15] MEDS: ONDANSETRON HCL 4 MG/2 ML VIAL IV PRN (20:39)
[2016-11-16] VITALS: BP 129/87; PULSE 70; RESP 18; TEMP 96.4; O2SAT 99
[2016-11-16] MEDS: ceFOXitin INJ 2 GM in SODIUM CHLORIDE 0.9% INJ 100 ML IV SCH ×2 (00:42→05:07)
[2016-11-16] MEDS: metroNIDAZOLE 500 MG INJ 100 ML IV SCH ×2 (01:33→09:08)
[2016-11-16 04:00] VITALS: BP 118/84; PULSE 74; RESP 18; TEMP 96.2; O2SAT 98
[2016-11-16 06:21] LABS: HEMATOCRIT 37.7 % (35.0-46.0); MEAN CELL VOLUME 102.7 FL (80.0-100.0); MEAN CORPUSCULAR HEMOGLOBIN 34.1 PG (27.0-34.0); MEAN CORPUSCULAR HGB CONC 33.2 % (32.0-36.0); PLATELET COUNT 427 TH/MM3 (150-450); RED BLOOD COUNT 3.67 MIL/MM3 (4.00-5.30); RED CELL DISTRIBUTION WIDTH 13.2 % (11.6-17.2); REVIEW FLAG FINAL; WHITE BLOOD COUNT 9.1 TH/MM3 (4.0-11.0)
[2016-11-16 08:00] VITALS: BP 132/95; PULSE 64; RESP 16; TEMP 96; O2SAT 98
[2016-11-16] MEDS: DOXYCYCLINE HYCLATE 100 MG CAP PO SCH (09:08)
[2016-11-16] MEDS: SODIUM CHLORIDE 0.9% FLUSH 5 ML FLUSH IV FLUSH SCH (09:08)
--- NOTE | 2016-11-16 09:10 | HHI.PR ---
Subjective . D/w patient that she will need to complete 14 days of antibiotics, [facility] given her [facility] of health [facility], Depo Provera shot prior to d/c. Objective . GI: abdomen soft, NTND Assessment/Plan Diagnosis: (1) Tubo-ovarian abscess (2) HIV (human immunodeficiency virus infection) (3) Complete miscarriage (4) Pelvic inflammatory disease . 1. TOA - continue 14 day course of abx; d/c on Doxy and Augmentin - pt may be unable to afford these medications. Case mgmt said they can help. - pt has received cefoxitin, doxy, flagyl 11/13 - present (today is day 4 of abx) 2. HIV - [facility] to start HIV meds - Case mgmt will give her the information 3. PID - pt has received cefoxitin - continue doxy - CM to help with outpatient meds 4. h/o recent miscarriage - Depo Provera shot prior to d/c s/d/w Dr. Liane Merlos,Perry Bedoya MD R1 Nov 16, 2016 09:10
[2016-11-16] MEDS ORDERED: [UNRECOGNIZED DRUG - CODE] PO (09:15)
[2016-11-16] MEDS ORDERED: medroxyPROGESTERone ACETATE SUSP 150 MG/ML SYRINGE IM ONE (09:15)
[2016-11-16] MEDS ORDERED: DOXY100C PO (09:15)
--- NOTE | 2016-11-16 09:17 | HHI.DCPOC ---
Discharge Care Plan Diagnosis: (1) Urinary tract infection (2) Pelvic inflammatory disease (3) Tubo-ovarian abscess (4) Complete miscarriage (5) HIV (human immunodeficiency virus infection) Report Symptoms to Your Doctor -Temperature above 100.5 degrees -Redness, of incision or excessive or foul smelling drainage -Unusual pain or calf pain -Increased vaginal bleeding -Painful or difficulty urinating -Feelings of extreme sadness or anxiety after 2 weeks Goals to Promote Your Health * To prevent worsening of your condition and complications, please take medications as prescribed. Please return to hospital with worse abdominal pain or fever. * To maintain your health at the optimal level, please follow up with doctors as instructed. Directions to Meet Your Goals Take your medications as prescribed Follow your dietary instruction Follow activity as directed Ensure plenty of rest for recovery Drink fluids for hydration Keep your appointments as scheduled Take your immunizations and boosters as scheduled If your symptoms worsen call your PCP, if no PCP go to Urgent Care Center or Emergency Room Smoking is Dangerous to Your Health. Avoid second hand smoke Call the 24-hour crisis hotline for domestic abuse at Perry Merlos MD R1 Nov 16, 2016 09:17
[2016-11-16] MEDS ORDERED: LEVO500T8 PO (11:00)
[2016-11-16] MEDS ORDERED: METR500T10 PO (11:00)
[2016-11-16 12:00] VITALS: BP 125/80; PULSE 62; RESP 16; TEMP 96.8; O2SAT 99
== END 2016-11-16 13:02 | disposition home or self-care (01) | DRG 779 ==
LOC: NEPD 19:56 → NEDA 11-13 01:54 → NEPHCDU 11-13 03:20 → OBSVTOIN 11-13 13:05 → N07A 11-14 04:12
PROVIDERS: ADMIT Obstetrics & Gynecology Maternal & Fetal Medicine; ATTEND Obstetrics & Gynecology Maternal & Fetal Medicine
DX: O03.5 Genital tract and pelvic infection following complete or unspecified spontaneous abortion (principal); B20 Human immunodeficiency virus [HIV] disease; N39.0 Urinary tract infection, site not specified; N70.93 Salpingitis and oophoritis, unspecified; N89.8 Other specified noninflammatory disorders of vagina; K80.20 Calculus of gallbladder without cholecystitis without obstruction; Z72.0 Tobacco use
CPT/HCPCS: 74177; 76830; 76856; 80053; 81001; 83605; 83690; 84702; 85025; 85027; 85652; 86355; 86357; 86359; 86360; 87086; 93975; 96361; 96365; 96367; 96375; J0694; J0780; J1885; J2270; J2405; J7030; Q9967

== ENCOUNTER 2017-03-27 20:15 | Emergency (ER) | payer SELFPAY ==
[~2017-03-27 20:15] MED LIST changes: +DOXY100C PO; +LEVO500T8 PO; +METR1TAB76 PO; -METR500T10 PO; -PRED20 PO; -RITO100 PO; +TYLE325T PO
[2017-03-27 20:17] VITALS: BP 139/92; PULSE 92; RESP 16; TEMP 96.7; O2SAT 97
== END 2017-03-27 20:38 | disposition left against medical advice (07) ==
LOC: NED 20:15
DX: N94.9 Unspecified condition associated with female genital organs and menstrual cycle (principal)
CPT/HCPCS: 99281

== ENCOUNTER 2017-04-13 22:27 | Emergency (ER) | payer SELFPAY ==
[2017-04-13 22:29] VITALS: BP 127/82; PULSE 102; RESP 16; TEMP 98.9; O2SAT 97
--- NOTE | 2017-04-13 23:05 | PD ---
HPI Chief Complaint: Abdominal Pain Time Seen by Provider: 22:38 Travel History International Travel<30 days: No Contact w/Intl Traveler<30days: No Traveled to known affect area: No History of Present Illness HPI Patient is a 26-year-old female who was a history of tubular ovarian abscess in October she was admitted and treated with antibiotics for a week . then discharged . she says she has not followed up since then. Now she is having return of similar symptoms that she had back in the beginning of October which ended up being a very tubular abscess . Reports achy pain that radiates from the lateral right to adnexal right . patient denies fever no discharge . but does have pain with sexual intercourse. she is not appear to be toxic ,no nausea, no vomiting ,Pain right radiating from the mid abdomen down to the adnexa, Has not seen another MD for this pain and took nothing to alleviate her Symptoms . PFSH Past Medical History Blood Disorders: Yes (HIV) Heart Rhythm Problems: No Cardiovascular Problems: No Chest Pain: No Congestive Heart Failure: No Diminished Hearing: No Endocrine: No Genitourinary: No Immune Disorder: Yes (hiv) Musculoskeletal: No Neurologic: No Reproductive: No Respiratory: No ?: Unknown LMP: 02/24/2017 : 4 Para: 4 Past Surgical History Section: No Other Surgery: No Social History Alcohol Use: Yes Tobacco Use: Yes Substance Use: Yes (FLAKKA AND POT TODAY) Allergies-Medications (Allergen,Severity, Reaction): Coded Allergies: Fish Containing Products (Unverified Allergy, Intermediate, 12/01/16) Uncoded Allergies: fish (Allergy, Severe, Swelling, 01/23/16) Reported Meds & Prescriptions Reported Meds & Active Scripts Active Metrogel Vaginal Gel (Metronidazole Vaginal Gel) 0.75 % Gel 1 Appl VAGINAL HS Doxycycline Hyclate 100 Mg Tab 100 Mg PO BID Review of Systems Except as stated in HPI: all other systems reviewed are Neg Gastrointestinal: Positive: Abdominal Pain (right-sided abdomen pain mid abdomen down to the right adnexa) Genitourinary: Positive: Pelvic Pain, No: Discharge, Vaginal Bleeding Physical Exam Narrative GENERAL: NON TOXIC NON SEPTIC SKIN: Warm and dry. HEAD: Atraumatic. Normocephalic. EYES: Pupils equal and round. No scleral icterus. No injection or drainage. ENT: No nasal bleeding or discharge. Mucous membranes pink and moist. NECK: Trachea midline. No JVD. CARDIOVASCULAR: Regular rate and rhythm. RESPIRATORY: No accessory muscle use. Clear to auscultation. Breath sounds equal bilaterally. GASTROINTESTINAL: Abdomen soft, non-tender, nondistended. Hepatic and splenic margins not palpable. MUSCULOSKELETAL: Extremities without clubbing, cyanosis, or edema. No obvious deformities. NEUROLOGICAL: Awake and alert. No obvious cranial nerve deficits. Motor grossly within normal limits. Five out of 5 muscle strength in the arms and legs. Normal speech. PSYCHIATRIC: Appropriate mood and affect; insight and judgment normal. Pelvic exam there is mild discharge in her vaginal vault there is no odor there is no cottage cheese like discharge wet prep is sent is GC chlamydia sent and covered her with ceftriaxone and azithromycin and clue cells came back positive I will give her a prescription for metronidazole and follow up as an outpatient PELVIC EXAM WHITISH YELLOWISH D/C IN VAGINAL VAULT AND CMT TENDER Data Data Last Documented VS Orders Orders Urinalysis - C+S If Indicated (04/13/17 22:31) Complete Blood Count With Diff (04/13/17 23:05) Comprehensive Metabolic Panel (04/13/17 23:05) Us Pelvis Comp W Dop Transvag (04/13/17 ) Gc And Chlamydia Pcr (04/14/17 03:09) Ceftriaxone Inj (Rocephin Inj) (04/14/17 03:15) Azithromycin (Zithromax) (04/14/17 03:15) Wet Prep Profile (04/14/17 03:21) Ed Discharge Order (04/14/17 05:38) Labs Laboratory Tests Test 04/13/17 22:42 04/13/17 23:25 04/14/17 03:20 Urine Color YELLOW Urine Turbidity HAZY Urine pH 7.5 Urine Specific [place] 1.019 Urine Protein NEG mg/dL Urine Glucose (UA) NEG mg/dL Urine Ketones NEG mg/dL Urine Occult Blood NEG Urine Nitrite NEG Urine Bilirubin NEG Urine Urobilinogen LESS THAN 2.0 MG/DL Urine Leukocyte Esterase NEG Urine RBC 1 /hpf Urine WBC 1 /hpf Urine Squamous Epithelial Cells 1 /hpf Urine Bacteria RARE /hpf Urine Mucus FEW /lpf Microscopic Urinalysis Comment CULT NOT INDICATED White Blood Count 4.4 TH/MM3 Red Blood Count 3.55 MIL/MM3 Hemoglobin 11.9 GM/DL Hematocrit 35.9 % Mean Corpuscular Volume 101.1 FL Mean Corpuscular Hemoglobin 33.7 PG Mean Corpuscular Hemoglobin Concent 33.3 % Red Cell Distribution Width 13.4 % Platelet Count 143 TH/MM3 Mean Platelet Volume 9.7 FL Neutrophils (%) (Auto) 57.1 % Lymphocytes (%) (Auto) 29.6 % Monocytes (%) (Auto) 7.6 % Eosinophils (%) (Auto) 2.7 % Basophils (%) (Auto) 3.0 % Neutrophils # (Auto) 2.5 TH/MM3 Lymphocytes # (Auto) 1.3 TH/MM3 Monocytes # (Auto) 0.3 TH/MM3 Eosinophils # (Auto) 0.1 TH/MM3 Basophils # (Auto) 0.1 TH/MM3 CBC Comment DIFF FINAL Differential Comment Blood Urea Nitrogen 12 MG/DL Creatinine 0.89 MG/DL Random Glucose 90 MG/DL Total Protein 7.6 GM/DL Albumin 3.3 GM/DL Calcium Level 9.0 MG/DL Alkaline Phosphatase 102 U/L Aspartate Amino Transf (AST/SGOT) 20 U/L Alanine Aminotransferase (ALT/SGPT) 45 U/L Total Bilirubin 0.2 MG/DL Sodium Level 141 MEQ/L Potassium Level 4.1 MEQ/L Chloride Level 107 MEQ/L Carbon Dioxide Level 30.2 MEQ/L Anion Gap 4 MEQ/L Estimat Glomerular Filtration Rate 93 ML/MIN Clue Cells (Wet Prep) PRESENT Vaginal Trichomonas (Wet Prep) NONE SEEN Vaginal Yeast (Wet Prep) NONE SEEN Chlamydia trachomatis DNA (PCR) NOT DETECTED Neisseria gonorrhoeae DNA (PCR) NOT DETECTED MDM Medical Decision Making Medical Screen Exam Complete: Yes Emergency Medical Condition: Yes Differential Diagnosis TRICH VS gc CHLAM VS TOA PID Narrative Course CLUE CELLS ON WET PREP AND CEFTRIAXONE AND AZITHRO FOR GC CHLAM FOLLOW UP WITH OUTPT Diagnosis Primary Impression: Bacterial vaginosis Additional Impression: Abdominal pain Qualified Codes: R10.84 - Generalized abdominal pain Scripts Metronidazole Vaginal Gel (Metrogel Vaginal Gel) 0.75 % Gel 1 APPL VAGINAL HS for Infection, #7 TUBE 0 Refills Prov: Fco Torres MD 04/14/17 Doxycycline Hyclate (Doxycycline Hyclate) 100 Mg Tab 100 MG PO BID, #20 TAB Prov: Fco Torres MD 04/14/17 Fco Torres MD Apr 13, 2017 23:05
[2017-04-13 23:07] LABS: BACTERIA, URINE RARE /hpf; BILIRUBIN, URINE NEG (NEG); BLOOD, URINE NEG (NEG); GLUCOSE,URINE NEG (NEG); KETONE, URINE NEG (NEG); MUCUS URINE FEW /lpf (OCC); NITRITE,URINE NEG (NEG); PH, URINE 7.5 (5.0-8.5); SQUAMOUS EPITHELIAL CELL URINE 1 /hpf (0-5); URINE COLOR YELLOW (YELLW/STRAW); URINE LEUKOCYTE ESTERASE NEG (NEG)
[2017-04-13 23:37] LABS: AUTOMATED NEUTROPHIL # 2.5 TH/MM3 (1.8-7.7); BASOPHIL # 0.1 TH/MM3 (0-0.2); EOSINOPHIL # 0.1 TH/MM3 (0-0.4); EOSINOPHIL % 2.7 % (0.0-4.0); HEMATOCRIT 35.9 % (35.0-46.0); HEMOGLOBIN 11.9 GM/DL (11.6-15.3); LYMPH % 29.6 % (9.0-44.0); LYMPHOCYTE # 1.3 TH/MM3 (1.0-4.8); MEAN CELL VOLUME 101.1 FL (80.0-100.0); MEAN CORPUSCULAR HEMOGLOBIN 33.7 PG (27.0-34.0); MEAN CORPUSCULAR HGB CONC 33.3 % (32.0-36.0); MEAN PLATELET VOLUME 9.7 FL (7.0-11.0); MONO % 7.6 % (0.0-8.0); MONOCYTE # 0.3 TH/MM3 (0-0.9); NEUT % 57.1 % (16.0-70.0); PLATELET COUNT 143 TH/MM3 (150-450); RED BLOOD COUNT 3.55 MIL/MM3 (4.00-5.30); RED CELL DISTRIBUTION WIDTH 13.4 % (11.6-17.2); WHITE BLOOD COUNT 4.4 TH/MM3 (4.0-11.0)
[2017-04-14 00:02] LABS: ALBUMIN 3.3 GM/DL (3.4-5.0); ALT (GPT) 45 U/L (10-53); AST (GOT) 20 U/L (15-37); BICARBONATE 30.2 MEQ/L (21.0-32.0); BLOOD UREA NITROGEN 12 MG/DL (7-18); CHLORIDE 107 MEQ/L (98-107); CREATININE 0.89 MG/DL (0.50-1.00); GLOMERULAR FILTRATION RATE 93 ML/MIN (>89); GLUCOSE,RANDOM 90 MG/DL (74-106); SODIUM (NA) 141 MEQ/L (136-145)
[2017-04-14 00:04] LABS: ALKALINE PHOSPHATASE 102 U/L (45-117); TOTAL BILIRUBIN ADULT 0.2 MG/DL (0.2-1.0); TOTAL PROTEIN 7.6 GM/DL (6.4-8.2)
--- NOTE | 2017-04-14 00:15 | RADRPT ---
EXAM DATE/TIME: 04/13/2017 23:24 [place] COMPARISON: No previous studies available for comparison. INDICATIONS : Pelvic pain. MEDICAL HISTORY : . HIV. Substance abuse. Tubo-ovarian abscess. Chlamydia. PID. SURGICAL HISTORY : None. ENCOUNTER: Subsequent ACUITY: 1 day PAIN SCORE: 5/10 LOCATION: Bilateral pelvis MEASUREMENTS: UTERUS: 9.4 x 6.5 x 4.7 cm ENDOMETRIAL STRIPE: 11 mm RIGHT OVARY: 4.4 x 3.0 x 2.6 cm LEFT OVARY: 3.4 x 2.9 x 1.5 cm FINDINGS: There is a trace of fluid in the posterior cul-de-sac and endocervical canal. Approximate 2.1 cm cyst is present in the right ovary with a complex 1.6 cm cyst in the left ovary. No definite uterine mass is seen. CONCLUSION: Tiny amount of fluid in the endocervical canal cul-de-sac with ovarian cysts. Arun Garcias MD on April 14, 2017 at 0:13 Board Certified Radiologist. This report was verified electronically.
[2017-04-14 01:34] VITALS: BP 115/70; PULSE 81; RESP 18; O2SAT 99
[2017-04-14 03:08] VITALS: BP 124/74; PULSE 84; RESP 18; O2SAT 99
[2017-04-14] MEDS ORDERED: cefTRIAXone 250 MG VIAL IM ONE (03:15)
[2017-04-14] MEDS ORDERED: AZITHROMYCIN 250 MG TAB PO ONE (03:15)
[2017-04-14] MEDS ORDERED: METR0.7528 VAGINAL (05:11)
[2017-04-14] MEDS ORDERED: DOXY100T PO (05:11)
[2017-04-14 05:29] VITALS: BP 117/65
== END 2017-04-14 06:01 | disposition home or self-care (01) ==
LOC: NEPC 22:27
DX: N76.0 Acute vaginitis (principal); B96.89 Other specified bacterial agents as the cause of diseases classified elsewhere; F19.10 Other psychoactive substance abuse, uncomplicated; Z72.0 Tobacco use; Z21 Asymptomatic human immunodeficiency virus [HIV] infection status
CPT/HCPCS: 76830; 76856; 80053; 81001; 85025; 87210; 87491; 87591; 93975; 96372; 99285; J0696

== ENCOUNTER 2017-05-06 22:17 | Emergency (ER) | payer SELFPAY ==
[~2017-05-06] VITALS: Ht 160 cm; Wt 75.0 kg
[~2017-05-06 22:17] MED LIST changes: -DOXY100C PO; +DOXY100T PO; -IBUP-232 PO; -LEVO500T8 PO; -MACR100C2 PO; +METR0.7528 VAGINAL; -METR1TAB76 PO; -TYLE325T PO
[2017-05-06 22:19] VITALS: BP 125/64; PULSE 85; RESP 16; TEMP 99; O2SAT 100
--- NOTE | 2017-05-11 22:38 | PD ---
Physical Exam Date Seen by Provider: May 06, 2017 Time Seen by Provider: 23:21 Narrative 26 year old female presents to the emergency department for evaluation of dizziness that started approximately 15 minutes prior to arrival. She has no other symptoms. No pain. [facility] Supervised Visit with NADE[place]: No Narrative Course 26 year old female presents to the emergency department for evaluation of dizziness. Patient is initially seen in triage. She left AGAINST MEDICAL ADVICE before she can be moved to medical bed. Diagnosis Primary Impression: Left against medical advice Additional Impression: Dizziness Disposition: 07 AGAINST MEDICAL ADVICE Beth Basurto May 11, 2017 22:38
== END 2017-05-06 23:21 | disposition left against medical advice (07) ==
LOC: NED 22:17
DX: R42 Dizziness and giddiness (principal)
CPT/HCPCS: 99281

== ENCOUNTER 2017-05-07 02:09 | Emergency (ER) | payer SELFPAY ==
[~2017-05-07] VITALS: Ht 160 cm; Wt 78.0 kg
[2017-05-07 02:12] VITALS: BP 134/92; PULSE 89; RESP 16; TEMP 98.9; O2SAT 99
[2017-05-07 03:17] LABS: BACTERIA, URINE RARE /hpf; BILIRUBIN, URINE NEG (NEG); BLOOD, URINE NEG (NEG); GLUCOSE,URINE NEG (NEG); KETONE, URINE NEG (NEG); NITRITE,URINE NEG (NEG); SQUAMOUS EPITHELIAL CELL URINE 3 /hpf (0-5); URINE COLOR LIGHT-YELLOW (YELLW/STRAW); URINE LEUKOCYTE ESTERASE NEG (NEG)
--- NOTE | 2017-05-07 03:42 | PD ---
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 Said it was white and foul smelling. Denies any fever, chest pain, sob, n/v, abdominal pain , vaginal bleeding. PFSH Past Medical History Autoimmune Disease: Yes (non-compliant w/antiretroviral meds ) Blood Disorders: Yes (HIV) Heart Rhythm Problems: No Cardiovascular Problems: No Chest Pain: No Congestive Heart Failure: No Diminished Hearing: No Endocrine: No Genitourinary: No Immune Disorder: Yes (HIV +; last known CD4 count: 426 (11/13/16)) Musculoskeletal: No Neurologic: No Reproductive: Yes (hx: tubo-ovarian abscess, chlamydia, PID, ) Respiratory: No Immunizations Current: Yes ?: Unknown LMP: NOVEMBER 2016 : 5 Para: 4 Miscarriage: 1 Past Surgical History Section: No Other Surgery: No Social History Alcohol Use: Yes Tobacco Use: Yes Substance Use: Yes (FLAKKA AND POT) Allergies-Medications (Allergen,Severity, Reaction): Coded Allergies: Fish Containing Products (Unverified Allergy, Intermediate, 05/07/17) Uncoded Allergies: fish (Allergy, Severe, Swelling, 01/23/16) Reported Meds & Prescriptions Reported Meds & Active Scripts Active Metrogel Vaginal Gel (Metronidazole Vaginal Gel) 0.75 % Gel 1 Appl VAGINAL HS Doxycycline Hyclate 100 Mg Tab 100 Mg PO BID Review of Systems Except as stated in HPI: all other systems reviewed are Neg Physical Exam Narrative GENERAL: 26yo F not in distress. SKIN: Focused skin assessment warm/dry. HEAD: Atraumatic. Normocephalic. CARDIOVASCULAR: Regular rate and rhythm. No murmur appreciated. RESPIRATORY: No accessory muscle use. Clear to auscultation. Breath sounds equal bilaterally. GASTROINTESTINAL: Abdomen soft, non-tender, nondistended. PELVIC: Refused. MUSCULOSKELETAL: No obvious deformities. No clubbing. No cyanosis. No edema. NEUROLOGICAL: Awake and alert. No obvious cranial nerve deficits. Motor grossly within normal limits. Normal speech. PSYCHIATRIC: Appropriate mood and affect; insight and judgment normal. Data Data Last Documented VS Vital Signs Date Time Temp Pulse Resp B/P (MAP) Pulse Ox O2 Delivery O2 Flow Rate FiO2 05/07/17 02:12 98.9 89 16 134/92 (106) 99 Room Air Orders Orders Urinalysis - C+S If Indicated (05/07/17 02:57) Ed Urine Pregnancytest Poc (05/07/17 03:19) Gc And Chlamydia Pcr (05/07/17 03:34) Wet Prep Profile (05/07/17 03:34) Labs Laboratory Tests Test 05/07/17 03:00 Urine Color LIGHT-YELLOW Urine Turbidity CLEAR Urine pH 8.0 Urine Specific [place] 1.009 Urine Protein NEG mg/dL Urine Glucose (UA) NEG mg/dL Urine Ketones NEG mg/dL Urine Occult Blood NEG Urine Nitrite NEG Urine Bilirubin NEG Urine Urobilinogen LESS THAN 2.0 MG/DL Urine Leukocyte Esterase NEG Urine RBC 1 /hpf Urine WBC LESS THAN 1 /hpf Urine Squamous Epithelial Cells 3 /hpf Urine Bacteria RARE /hpf Microscopic Urinalysis Comment CULT NOT INDICATED MDM Medical Decision Making Medical Screen Exam Complete: Yes Emergency Medical Condition: Yes Differential Diagnosis Bacterial vaginosis vs. vaginal candidiasis vs. chlamydia vs. gonorrhea Narrative Course 26yo F here with c/o vaginal discharge. UA negative. Pt has no other complaints. While setting up for a pelvic exam, she started to say she needs a minute. Then pt refused the exam and said I have to go. I informed her that I need to do the exam in order to see what the discharge is. AMA: The risks of leaving against medical advice without further evaluation treatment were discussed with the patient. These risks include cardiac dysfunction, cardiac dysrhythmia, possible heart attack, possible stroke or . The patient indicated understanding of these risks and appeared to have the capacity to make this decision. Diagnosis Primary Impression: Vaginal discharge Patient Instructions: General Instructions Departure Forms: Tests/Procedures Additional Instructions: Please return to the ED if you want to be evaluated. Med/Other Pt SpecificInfo: No Change to Meds Disposition: 07 AGAINST MEDICAL ADVICE Condition: Stable Allison Coto DO May 07, 2017 03:42
== END 2017-05-07 04:18 | disposition left against medical advice (07) ==
LOC: NEPC 02:09
DX: N89.8 Other specified noninflammatory disorders of vagina (principal); Z21 Asymptomatic human immunodeficiency virus [HIV] infection status; Z72.0 Tobacco use; Z53.29 Procedure and treatment not carried out because of patient's decision for other reasons
CPT/HCPCS: 81001; 99283

== ENCOUNTER 2017-06-17 11:35 | Emergency (ER) | payer SELFPAY ==
[~2017-06-17] VITALS: Ht 160 cm; Wt 80.0 kg
[2017-06-17 11:45] VITALS: BP 125/82; PULSE 81; RESP 18; TEMP 98.6; O2SAT 97
== END 2017-06-17 12:07 | disposition left against medical advice (07) ==
LOC: NED 11:35
DX: N94.9 Unspecified condition associated with female genital organs and menstrual cycle (principal)
CPT/HCPCS: 99281

== ENCOUNTER 2017-06-18 18:26 | Emergency (ER) | payer SELFPAY ==
[~2017-06-18] VITALS: Ht 160 cm; Wt 80.0 kg
[2017-06-18 18:36] VITALS: BP 129/82; PULSE 98; RESP 18; TEMP 98.2; O2SAT 100
--- NOTE | 2017-06-18 18:49 | PD ---
HPI Chief Complaint: Psychiatric Symptoms Time Seen by Provider: 18:49 Travel History International Travel<30 days: No Contact w/Intl Traveler<30days: No Traveled to known affect area: No History of Present Illness HPI 26-year-old female with no psychiatric history presents to the emergency department for evaluation. Patient is accompanied by her mother. Patient states she used to use flakka. She has not used it since April. Her mother states since April the patient has intermittently been hearing voices. She was able to keep them under control however today while she was working she contacted her mother. She told her mother that the voices were telling her to jump. The patient tells me that she cannot tell me what the voices are telling her. She appears to be responding to them and listening to whatever they may be telling her rather than responding to me. Patient seems very paranoid. She offers little history. History is mostly obtained from her mother who states she has no psychiatric history. No family psychiatric history. Tells me about her drug use. She has been working hard to get her children back. She goes to drug court and she is on probation. She just got a new job. Mother states she is not currently using any drugs. PFSH Past Medical History Autoimmune Disease: Yes (non-compliant w/antiretroviral meds ) Blood Disorders: Yes (HIV) Heart Rhythm Problems: No Cardiovascular Problems: No Chest Pain: No Congestive Heart Failure: No Diminished Hearing: No Endocrine: No Genitourinary: No Immune Disorder: Yes (HIV +; last known CD4 count: 426 (11/13/16)) Musculoskeletal: No Neurologic: No Reproductive: Yes (hx: tubo-ovarian abscess, chlamydia, PID, ) Respiratory: No Immunizations Current: Yes : 5 Para: 4 Miscarriage: 1 Past Surgical History Section: No Other Surgery: No Social History Alcohol Use: Yes Tobacco Use: Yes Substance Use: Yes (FLAKKA AND POT) Allergies-Medications (Allergen,Severity, Reaction): Coded Allergies: Fish Containing Products (Unverified Allergy, Intermediate, 06/18/17) Uncoded Allergies: fish (Allergy, Severe, Swelling, 01/23/16) Reported Meds & Prescriptions Reported Meds & Active Scripts Active Metrogel Vaginal Gel (Metronidazole Vaginal Gel) 0.75 % Gel 1 Appl VAGINAL HS Doxycycline Hyclate 100 Mg Tab 100 Mg PO BID Review of Systems ROS Limitations: Psychotic Except as stated in HPI: all other systems reviewed are Neg Physical Exam Exam Limitations: Psychotic Narrative GENERAL: Well-nourished female patient, paranoid, but in no acute distress. Patient appears to be responding to internal stimuli. SKIN: Focused skin assessment warm/dry. HEAD: Atraumatic. Normocephalic. EYES: Pupils equal and round. No scleral icterus. No injection or drainage. ENT: No nasal bleeding or discharge. Mucous membranes pink and moist. NECK: Trachea midline. No JVD. CARDIOVASCULAR: Regular rate and rhythm. No murmur appreciated. RESPIRATORY: No accessory muscle use. Clear to auscultation. Breath sounds equal bilaterally. GASTROINTESTINAL: Abdomen soft, non-tender, nondistended. Hepatic and splenic margins not palpable. MUSCULOSKELETAL: No obvious deformities. No clubbing. No cyanosis. No edema. NEUROLOGICAL: Awake and alert. No obvious cranial nerve deficits. Motor grossly within normal limits. Normal speech. Data Data Last Documented VS Vital Signs Date Time Temp Pulse Resp B/P (MAP) Pulse Ox O2 Delivery O2 Flow Rate FiO2 06/18/17 18:36 98.2 98 18 129/82 (98) 100 Orders Orders Complete Blood Count With Diff (06/18/17 19:23) Thyroid Stimulating Hormone (06/18/17 19:23) Basic Metabolic Panel (Bmp) (06/18/17 19:23) Ed Urine Pregnancytest Poc (06/18/17 19:23) Psych Screen (06/18/17 19:23) Drug Screen, Random Urine (06/18/17 19:23) Alcohol (Ethanol) (06/18/17 19:23) Olanzapine (Zyprexa) (06/18/17 19:30) ^ Sitter (06/18/17 20:40) Lorazepam Inj (Ativan Inj) (06/18/17 21:15) Labs Laboratory Tests Test 06/18/17 19:00 06/18/17 19:45 Urine Opiates Screen NEG Urine Barbiturates Screen NEG Urine Amphetamines Screen NEG Urine Benzodiazepines Screen NEG Urine Cocaine Screen NEG Urine Cannabinoids Screen NEG White Blood Count 4.7 TH/MM3 Red Blood Count 3.60 MIL/MM3 Hemoglobin 12.4 GM/DL Hematocrit 36.9 % Mean Corpuscular Volume 102.3 FL Mean Corpuscular Hemoglobin 34.3 PG Mean Corpuscular Hemoglobin Concent 33.5 % Red Cell Distribution Width 14.7 % Platelet Count 204 TH/MM3 Mean Platelet Volume 8.8 FL Neutrophils (%) (Auto) 39.8 % Lymphocytes (%) (Auto) 48.8 % Monocytes (%) (Auto) 10.2 % Eosinophils (%) (Auto) 0.6 % Basophils (%) (Auto) 0.6 % Neutrophils # (Auto) 1.9 TH/MM3 Lymphocytes # (Auto) 2.3 TH/MM3 Monocytes # (Auto) 0.5 TH/MM3 Eosinophils # (Auto) 0.0 TH/MM3 Basophils # (Auto) 0.0 TH/MM3 CBC Comment DIFF FINAL Differential Comment Blood Urea Nitrogen 10 MG/DL Creatinine 1.14 MG/DL Random Glucose 114 MG/DL Calcium Level 8.8 MG/DL Sodium Level 140 MEQ/L Potassium Level 3.5 MEQ/L Chloride Level 106 MEQ/L Carbon Dioxide Level 27.7 MEQ/L Anion Gap 6 MEQ/L Estimat Glomerular Filtration Rate 70 ML/MIN Thyroid Stimulating Hormone 3rd Gen 1.240 uIU/ML Ethyl Alcohol Level LESS THAN 3 MG/DL MDM Medical Decision Making Medical Screen Exam Complete: Yes Emergency Medical Condition: Yes Medical Record Reviewed: Yes Differential Diagnosis Mood disorder versus personality disorder versus substance abuse versus acute psychosis Narrative Course 26-year-old female presents to the emergency department voluntarily for psychiatric evaluation. Patient appears to be responding to internal stimuli. She offers me little information. Her information is received from her mother who is very concerned about her behavior. Due to patient being unable to determine for herself if she needs examination in the fact that she may indeed harm herself she does listen to these voices, she will be placed under [place] act at this time. This is explained to the mother who is in agreement with this plan of care. Lab work is without acute concern. Patient is medically cleared to undergo psychiatric screening for further evaluation and disposition. Mental health screening discussed with the patient. Psychiatric screen ordered. Diagnosis Primary Impression: Psychosis Qualified Codes: F29 - Unspecified psychosis not due to a substance or known physiological condition Condition: Stable Niyah Beasley Jun 18, 2017 18:49
[2017-06-18] MEDS ORDERED: OLANZapine 10 MG TAB PO ONE (19:30)
[2017-06-18 20:13] LABS: AUTOMATED NEUTROPHIL # 1.9 TH/MM3 (1.8-7.7); BASOPHIL % 0.6 % (0.0-2.0); EOSINOPHIL % 0.6 % (0.0-4.0); HEMATOCRIT 36.9 % (35.0-46.0); HEMOGLOBIN 12.4 GM/DL (11.6-15.3); LYMPH % 48.8 % (9.0-44.0); LYMPHOCYTE # 2.3 TH/MM3 (1.0-4.8); MEAN CELL VOLUME 102.3 FL (80.0-100.0); MEAN CORPUSCULAR HEMOGLOBIN 34.3 PG (27.0-34.0); MEAN CORPUSCULAR HGB CONC 33.5 % (32.0-36.0); MEAN PLATELET VOLUME 8.8 FL (7.0-11.0); MONO % 10.2 % (0.0-8.0); MONOCYTE # 0.5 TH/MM3 (0-0.9); NEUT % 39.8 % (16.0-70.0); PLATELET COUNT 204 TH/MM3 (150-450); RED CELL DISTRIBUTION WIDTH 14.7 % (11.6-17.2); WHITE BLOOD COUNT 4.7 TH/MM3 (4.0-11.0)
[2017-06-18 20:35] LABS: BICARBONATE 27.7 MEQ/L (21.0-32.0); BLOOD UREA NITROGEN 10 MG/DL (7-18); CALCIUM 8.8 MG/DL (8.5-10.1); CHLORIDE 106 MEQ/L (98-107); CREATININE 1.14 MG/DL (0.50-1.00); GLOMERULAR FILTRATION RATE 70 ML/MIN (>89); GLUCOSE,RANDOM 114 MG/DL (74-106); SODIUM (NA) 140 MEQ/L (136-145)
[2017-06-18] MEDS ORDERED: LORazepam 2 MG/ML VIAL IM ONE (21:15)
[2017-06-19 06:00] VITALS: BP 115/66; PULSE 71; RESP 18; TEMP 98.3; O2SAT 100
--- NOTE | 2017-06-19 08:52 | PD ---
Physical Exam Date Seen by Provider: Jun 19, 2017 Time Seen by Provider: 08:51 Narrative 26-year-old female previously medically cleared for psychiatric evaluation has been seen by psychiatric staff and deemed psychiatrically stable for discharge. Follow-up will be based on psychiatric note. Data Data Last Documented VS Vital Signs Date Time Temp Pulse Resp B/P (MAP) Pulse Ox O2 Delivery O2 Flow Rate FiO2 06/19/17 06:00 98.3 71 18 115/66 (82) 100 Room Air Orders Orders Complete Blood Count With Diff (06/18/17 19:23) Thyroid Stimulating Hormone (06/18/17 19:23) Basic Metabolic Panel (Bmp) (06/18/17 19:23) Ed Urine Pregnancytest Poc (06/18/17 19:23) Psych Screen (06/18/17 19:23) Drug Screen, Random Urine (06/18/17 19:23) Alcohol (Ethanol) (06/18/17 19:23) Olanzapine (Zyprexa) (06/18/17 19:30) ^ Sitter (06/18/17 20:40) Lorazepam Inj (Ativan Inj) (06/18/17 21:15) Diet Regular Basic (06/19/17 Breakfast) Labs Laboratory Tests Test 06/18/17 19:00 06/18/17 19:45 Urine Opiates Screen NEG Urine Barbiturates Screen NEG Urine Amphetamines Screen NEG Urine Benzodiazepines Screen NEG Urine Cocaine Screen NEG Urine Cannabinoids Screen NEG White Blood Count 4.7 TH/MM3 Red Blood Count 3.60 MIL/MM3 Hemoglobin 12.4 GM/DL Hematocrit 36.9 % Mean Corpuscular Volume 102.3 FL Mean Corpuscular Hemoglobin 34.3 PG Mean Corpuscular Hemoglobin Concent 33.5 % Red Cell Distribution Width 14.7 % Platelet Count 204 TH/MM3 Mean Platelet Volume 8.8 FL Neutrophils (%) (Auto) 39.8 % Lymphocytes (%) (Auto) 48.8 % Monocytes (%) (Auto) 10.2 % Eosinophils (%) (Auto) 0.6 % Basophils (%) (Auto) 0.6 % Neutrophils # (Auto) 1.9 TH/MM3 Lymphocytes # (Auto) 2.3 TH/MM3 Monocytes # (Auto) 0.5 TH/MM3 Eosinophils # (Auto) 0.0 TH/MM3 Basophils # (Auto) 0.0 TH/MM3 CBC Comment DIFF FINAL Differential Comment Blood Urea Nitrogen 10 MG/DL Creatinine 1.14 MG/DL Random Glucose 114 MG/DL Calcium Level 8.8 MG/DL Sodium Level 140 MEQ/L Potassium Level 3.5 MEQ/L Chloride Level 106 MEQ/L Carbon Dioxide Level 27.7 MEQ/L Anion Gap 6 MEQ/L Estimat Glomerular Filtration Rate 70 ML/MIN Thyroid Stimulating Hormone 3rd Gen 1.240 uIU/ML Ethyl Alcohol Level LESS THAN 3 MG/DL MDM Medical Record Reviewed: Yes Supervised Visit with NADEEM: Yes Narrative Course 26-year-old female previously medically cleared for psychiatric evaluation has been seen by psychiatric staff and deemed psychiatrically stable for discharge. Follow-up will be based on psychiatric note. Diagnosis Primary Impression: Psychosis Qualified Codes: F29 - Unspecified psychosis not due to a substance or known physiological condition Patient Instructions: General Instructions Disposition: 01 DISCHARGE HOME Condition: Stable Kalyan Lemos Jun 19, 2017 08:52
--- NOTE | 2017-06-19 11:29 | PD.PSY.CON ---
Psych & Development History Hx of Psych Illness History Of Psychiatric: Yes History Psychiatric Illness: Other (subtance abuse) Medical History Medical History: No Social History Social History: Lives with mother Legal History History of Legal Involvement: No Personal Strengths & Assets Strengths (Minimum of 2): Positive, Verbal Review of Systems All other systems negative?: Yes Mental Examination Pt Able to Contract for Safety: Yes Behavioral/Attitude: Cooperative Speech: Unremarkable Orientation: Person, Place, Time, Date, Situation Memory: Unremarkable Impulse Control Description: Fair Acts Impulsively: Yes Thought Process: Organized Thought Content: Unremarkable Attention and Concentration: Good Suicidal Ideation: No Previous Suicide Attempts: No Homicidal Ideation: No Previous Homicide Attempts: No Insight: Fair Judgement: WNL Reliability: Adequate Affect: Euthymic Mood: Appropriate Cognition: Alert, Oriented x3 Motor Activity: Normal gait Assessment and Plan Personal safety plan: Pt. seem and evaluated . She is calm and cooperative- alert, awake and oriented t time place and person. She denies any suicidal or homicidal thoughts. 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 Plan : D/C pt. home to her mother. Recomm; out pt/ substance abuse treatment. The patient, Rocael Li, shall be discharged/released from any involuntary status for a mental illness pursuant to chapter 394, [place] Statutes. Patient condition on discharge: Stable Discharge disposition: Discharge Home Release patient to custody of: Parent Nimco William MD Jun 19, 2017 11:29
== END 2017-06-19 10:07 | disposition home or self-care (01) ==
LOC: NEPC 18:26 → NEPJ 06-19 10:07
DX: F29 Unspecified psychosis not due to a substance or known physiological condition (principal); B20 Human immunodeficiency virus [HIV] disease; Z72.0 Tobacco use; Z79.899 Other long term (current) drug therapy
CPT/HCPCS: 80048; 80307; 84443; 84703; 85025; 96372; 99284; J2060

== ENCOUNTER 2017-08-01 08:28 | Emergency (ER) | payer SELFPAY ==
[~2017-08-01] VITALS: Ht 160 cm; Wt 75.0 kg
[2017-08-01 08:34] VITALS: BP 105/56; PULSE 92; RESP 18; TEMP 98; O2SAT 98
[2017-08-01] MEDS ORDERED: CEPH-460 PO (10:22)
[2017-08-01] MEDS ORDERED: BACT800T5 PO (10:22)
[2017-08-01] MEDS ORDERED: SULFAMETHOXAZOLE-TRIMETHOPRIM DS 800-160 MG TAB PO ONE (10:30)
[2017-08-01] MEDS ORDERED: CEPHALEXIN MONOHYDRATE 500 MG CAP PO ONE (10:30)
--- NOTE | 2017-08-01 10:30 | PD ---
HPI Chief Complaint: Lump, Cyst, Hernia Time Seen by Provider: 10:16 Travel History International Travel<30 days: No Contact w/Intl Traveler<30days: No Traveled to known affect area: No History of Present Illness HPI 26-year-old female presents for evaluation of an area of skin redness on the left thigh as well as another one on the left lower leg. Symptoms started 1 week ago. She reports pain, redness, some purulent drainage from the left lower leg area. She does not recall any bug bites or puncture wounds. Denies any fevers or chills. Denies any history of IV drug use. She has no other complaints. PFSH Past Medical History Autoimmune Disease: Yes (non-compliant w/antiretroviral meds ) Blood Disorders: Yes (HIV) Heart Rhythm Problems: No Cardiovascular Problems: No Chest Pain: No Congestive Heart Failure: No Diminished Hearing: No Endocrine: No Genitourinary: No Immune Disorder: Yes (HIV +; last known CD4 count: 426 (11/13/16)) Musculoskeletal: No Neurologic: No Reproductive: Yes (hx: tubo-ovarian abscess, chlamydia, PID, ) Respiratory: No Immunizations Current: Yes ?: Not LMP: JUNE 2017 : 5 Para: 4 Miscarriage: 1 Past Surgical History Section: No Other Surgery: No Social History Alcohol Use: Yes Tobacco Use: Yes Substance Use: Yes (flakka, marijuana) Allergies-Medications (Allergen,Severity, Reaction): Coded Allergies: Fish Containing Products (Unverified Allergy, Intermediate, 06/18/17) Uncoded Allergies: fish (Allergy, Severe, Swelling, 01/23/16) Reported Meds & Prescriptions Reported Meds & Active Scripts Active Keflex (Cephalexin) 500 Mg Cap 500 Mg PO Q8H Bactrim DS (Sulfamethoxazole-Trimethoprim) 800-160 Mg Tab 1 Tab PO BID Metrogel Vaginal Gel (Metronidazole Vaginal Gel) 0.75 % Gel 1 Appl VAGINAL HS Doxycycline Hyclate 100 Mg Tab 100 Mg PO BID Review of Systems General / Constitutional: No: Fever, Chills Musculoskeletal: No: Pain Skin: Positive Rash, Positive Other (Pain, redness, drainage) Physical Exam Narrative GENERAL: Well-developed well-nourished female no acute distress SKIN: Warm and dry. On the anterior proximal left thigh there is a 2 cm circular area of induration without drainage or fluctuance. On the anterior left ness there is a 2 cm area of induration with small amount of purulent centralized drainage without fluctuance. Wound culture obtained. HEAD: Atraumatic. Normocephalic. EYES: Pupils equal and round. No scleral icterus. No injection or drainage. ENT: No nasal bleeding or discharge. Mucous membranes pink and moist. NECK: Trachea midline. No JVD. CARDIOVASCULAR: Regular rate and rhythm. No murmur appreciated. RESPIRATORY: No accessory muscle use. Clear to auscultation. Breath sounds equal bilaterally. GASTROINTESTINAL: Abdomen soft, non-tender, nondistended. Hepatic and splenic margins not palpable. MUSCULOSKELETAL: No obvious deformities. No clubbing. No cyanosis. No edema. Data Data Last Documented VS Vital Signs Date Time Temp Pulse Resp B/P (MAP) Pulse Ox O2 Delivery O2 Flow Rate FiO2 08/01/17 08:34 98.0 92 18 105/56 (72) 98 Orders Orders Sulfamet-Trimeth Ds 800-160 Mg (Bactrim (08/01/17 10:30) Cephalexin (Keflex) (08/01/17 10:30) Ed Discharge Order (08/01/17 10:21) Wound Culture And Gram Stain (08/01/17 10:21) MDM Medical Decision Making Medical Screen Exam Complete: Yes Emergency Medical Condition: Yes Medical Record Reviewed: Yes Differential Diagnosis Cellulitis, abscess, erysipelas, infected cyst, osteomyelitis, necrotizing fasciitis Narrative Course Wound culture was obtained. The patient will be discharged with Bactrim and Keflex pending culture results. Diagnosis Primary Impression: Cellulitis Additional Instructions: Medication as prescribed. Warm compresses several times a day 20 minutes at a time. Return for new or worsening symptoms. Med/Other Pt SpecificInfo: Prescription(s) given, Wound Care Scripts Cephalexin (Keflex) 500 Mg Cap 500 MG PO Q8H for Infection, #30 CAP 0 Refills Prov: Tony Canales MD 08/01/17 Sulfamethoxazole-Trimethoprim (Bactrim DS) 800-160 Mg Tab 1 TAB PO BID for Infection, #20 TAB 0 Refills Prov: Tony Canales MD 08/01/17 Disposition: 01 DISCHARGE HOME Condition: Stable Kirby Lacy Aug 01, 2017 10:30
== END 2017-08-01 10:42 | disposition home or self-care (01) ==
LOC: NEPD 08:28
DX: L03.116 Cellulitis of left lower limb (principal); B95.62 Methicillin resistant Staphylococcus aureus infection as the cause of diseases classified elsewhere; Z72.0 Tobacco use
CPT/HCPCS: 86403; 87070; 87186; 99283

== ENCOUNTER 2017-10-12 09:40 | Emergency (ER) | payer SELFPAY ==
[~2017-10-12] VITALS: Ht 160 cm; Wt 74.0 kg
[~2017-10-12 09:40] MED LIST changes: +BACT800T5 PO; +CEPH-460 PO
[2017-10-12 09:58] VITALS: BP 81/51; PULSE 97; RESP 19; TEMP 98.3; O2SAT 97
[2017-10-12 10:05] VITALS: BP 100/51
[2017-10-12] MEDS ORDERED: SODIUM CHLOR 0.9% 1000 ML INJ 1,000 ML IV ONE (10:13)
[2017-10-12] MEDS ORDERED: IBUPROFEN 600 MG TAB PO ONE (10:15)
[2017-10-12 10:40] LABS: BASOPHIL % 0.4 % (0.0-2.0); EOSINOPHIL # 0.1 TH/MM3 (0-0.4); HEMATOCRIT 39.4 % (35.0-46.0); HEMOGLOBIN 13.1 GM/DL (11.6-15.3); LYMPH % 17.2 % (9.0-44.0); LYMPHOCYTE # 1.6 TH/MM3 (1.0-4.8); MEAN CELL VOLUME 102.3 FL (80.0-100.0); MEAN CORPUSCULAR HEMOGLOBIN 34.1 PG (27.0-34.0); MEAN CORPUSCULAR HGB CONC 33.3 % (32.0-36.0); MONO % 6.2 % (0.0-8.0); MONOCYTE # 0.6 TH/MM3 (0-0.9); NEUT % 75.2 % (16.0-70.0); PLATELET COUNT 190 TH/MM3 (150-450); RED BLOOD COUNT 3.85 MIL/MM3 (4.00-5.30); RED CELL DISTRIBUTION WIDTH 13.6 % (11.6-17.2); WHITE BLOOD COUNT 9.4 TH/MM3 (4.0-11.0)
[2017-10-12 11:07] LABS: BICARBONATE 27.4 MEQ/L (21.0-32.0); BLOOD UREA NITROGEN 10 MG/DL (7-18); CALCIUM 8.7 MG/DL (8.5-10.1); CHLORIDE 110 MEQ/L (98-107); CREATININE 0.93 MG/DL (0.50-1.00); GLOMERULAR FILTRATION RATE 88 ML/MIN (>89); GLUCOSE,RANDOM 97 MG/DL (74-106); SODIUM (NA) 142 MEQ/L (136-145)
[2017-10-12 11:07] LABS: BACTERIA, URINE RARE /hpf; BILIRUBIN, URINE NEG (NEG); BLOOD, URINE SMALL (NEG); GLUCOSE,URINE NEG (NEG); KETONE, URINE NEG (NEG); MUCUS URINE MOD /lpf (OCC); NITRITE,URINE NEG (NEG); SQUAMOUS EPITHELIAL CELL URINE 4 /hpf (0-5); URINE COLOR YELLOW (YELLW/STRAW); URINE LEUKOCYTE ESTERASE SMALL (NEG)
[2017-10-12 11:26] VITALS: BP 129/66; PULSE 84; RESP 16; O2SAT 98
--- NOTE | 2017-10-12 11:46 | RADRPT ---
EXAM DATE: 10/12/2017 11:30 AM EDT AGE/SEX: 27 years / Female INDICATIONS: Pelvic pain. CLINICAL DATA: This is the patient's sequela encounter. Patient reports that signs and symptoms have been present for 2 days and indicates a pain score of 7/10. MEDICAL/SURGICAL HISTORY: HIV. . Miscarriage x 1. Tubo-ovarian abscess. Chlamydia. PI D. Substance abuse. MRSA. None. COMPARISON: synapse default, US PELVIS,COMP,W DOPPLER, TRANS VAG, 04/13/2017. . MEASUREMENTS: Uterus:__10.5 x 6.2 x 4.4 cm Endometrial Stripe:__9 mm Right Ovary:__ 3.8 x 2.4 x 2.2 cm Left Ovary:__ 2.9 x 2.2 x 1.9 cm FINDINGS: Uterus: The myometrium has homogeneous echotexture without mass. Prominent regional vascular structu res could represent varicosities. Endometrial Stripe: The endometrial stripe displays homogeneous echotexture. Right Ovary: Ovary contains no mass or significant cystic lesion. Left Ovary: Ovary contains no mass or significant cystic lesion. Fluid: No free fluid. Other: None. CONCLUSION: 1. Prominent regional vessels, predominantly in the left adnexal region could represent pelvic varic osities. 2. Otherwise negative Electronically signed by: Isacc Huff MD 10/12/2017 11:45 AM EDT
[2017-10-12] MEDS ORDERED: CIPROFLOXACIN 500 MG TAB PO ONE (12:00)
[2017-10-12] MEDS ORDERED: BACT800T5 PO ×2 (12:02→13:16)
[2017-10-12] MEDS ORDERED: METR-1 PO (12:02)
--- NOTE | 2017-10-12 12:02 | PD ---
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 Last menstruation started 4 days ago. No nausea or vomiting. Pain is very mild yesterday however became much worse today. No abnormal vaginal discharge. Bowel movements normal. Pain is slightly worse with palpation and primarily on the left side according to the patient. No radiation. Patient has been seen here before for similar pain. PFSH Past Medical History Autoimmune Disease: Yes (non-compliant w/antiretroviral meds ) Blood Disorders: Yes (HIV) Heart Rhythm Problems: No Cardiovascular Problems: No Chest Pain: No Congestive Heart Failure: No Diminished Hearing: No Endocrine: No Genitourinary: No Immune Disorder: Yes (HIV +; last known CD4 count: 426 (11/13/16)) Musculoskeletal: No Neurologic: No Reproductive: Yes (hx: tubo-ovarian abscess, chlamydia, PID, ) Respiratory: No Immunizations Current: Yes Tetanus Vaccination: > 5 Years Influenza Vaccination: No ?: Not LMP: 10/07/17 : 5 Para: 4 Miscarriage: 1 : 0 Past Surgical History Surgical History: No Previous Surgery Section: No Other Surgery: No Social History Alcohol Use: No Tobacco Use: Yes (1PPD) Substance Use: Yes (flakka, marijuana) Allergies-Medications (Allergen,Severity, Reaction): Coded Allergies: Fish Containing Products (Unverified Allergy, Intermediate, 10/12/17) Uncoded Allergies: fish (Allergy, Severe, Swelling, 01/23/16) Reported Meds & Prescriptions Reported Meds & Active Scripts Active Bactrim DS (Sulfamethoxazole-Trimethoprim) 800-160 Mg Tab 1 Tab PO BID Bactrim DS (Sulfamethoxazole-Trimethoprim) 800-160 Mg Tab 1 Tab PO BID Flagyl (Metronidazole) 500 Mg Tab 500 Mg PO BID 7 Days Review of Systems Except as stated in HPI: all other systems reviewed are Neg General / Constitutional: No: Fever Physical Exam Narrative GENERAL: 27-year-old female well-nourished well-developed no acute distress Vital Signs Date Time Temp Pulse Resp B/P (MAP) Pulse Ox O2 Delivery O2 Flow Rate FiO2 10/12/17 11:26 84 16 129/66 (87) 98 Room Air 10/12/17 10:05 100/51 (67) 10/12/17 09:58 98.3 97 19 81/51 (61) 97 SKIN: Warm and dry. HEAD: Atraumatic. Normocephalic. EYES: Pupils equal and round. No scleral icterus. No injection or drainage. ENT: No nasal bleeding or discharge. Mucous membranes pink and moist. NECK: Trachea midline. No JVD. CARDIOVASCULAR: Regular rate and rhythm. RESPIRATORY: No accessory muscle use. Clear to auscultation. Breath sounds equal bilaterally. GASTROINTESTINAL: No tenderness on the right side. Minimal tenderness in left lower pelvis. MUSCULOSKELETAL: Extremities without clubbing, cyanosis, or edema. No obvious deformities. NEUROLOGICAL: Awake and alert. No obvious cranial nerve deficits. Motor grossly within normal limits. Five out of 5 muscle strength in the arms and legs. Normal speech. PSYCHIATRIC: Appropriate mood and affect; insight and judgment normal. Data Data Last Documented VS Vital Signs Date Time Temp Pulse Resp B/P (MAP) Pulse Ox O2 Delivery O2 Flow Rate FiO2 10/12/17 13:26 82 16 111/61 (78) 98 Room Air 10/12/17 09:58 98.3 Orders Orders Beta Hcg (Quant/Titer) (10/12/17 10:13) Complete Blood Count With Diff (10/12/17 10:13) Basic Metabolic Panel (Bmp) (10/12/17 10:13) Urinalysis - C+S If Indicated (10/12/17 10:13) Iv Access Insert/Monitor (10/12/17 10:13) Ecg Monitoring (10/12/17 10:13) Sodium Chlor 0.9% 1000 Ml Inj (Ns 1000 M (10/12/17 10:13) Ed Urine Pregnancytest Poc (10/12/17 10:13) Ibuprofen (Motrin) (10/12/17 10:15) Urine Culture (10/12/17 10:40) Us Pelvis Comp W Dop Transvag (10/12/17 ) Ciprofloxacin (Cipro) (10/12/17 12:00) Ed Discharge Order (10/12/17 12:02) Labs Laboratory Tests Test 10/12/17 10:20 10/12/17 10:40 White Blood Count 9.4 TH/MM3 Red Blood Count 3.85 MIL/MM3 Hemoglobin 13.1 GM/DL Hematocrit 39.4 % Mean Corpuscular Volume 102.3 FL Mean Corpuscular Hemoglobin 34.1 PG Mean Corpuscular Hemoglobin Concent 33.3 % Red Cell Distribution Width 13.6 % Platelet Count 190 TH/MM3 Mean Platelet Volume 9.0 FL Neutrophils (%) (Auto) 75.2 % Lymphocytes (%) (Auto) 17.2 % Monocytes (%) (Auto) 6.2 % Eosinophils (%) (Auto) 1.0 % Basophils (%) (Auto) 0.4 % Neutrophils # (Auto) 7.0 TH/MM3 Lymphocytes # (Auto) 1.6 TH/MM3 Monocytes # (Auto) 0.6 TH/MM3 Eosinophils # (Auto) 0.1 TH/MM3 Basophils # (Auto) 0.0 TH/MM3 CBC Comment DIFF FINAL Differential Comment Blood Urea Nitrogen 10 MG/DL Creatinine 0.93 MG/DL Random Glucose 97 MG/DL Calcium Level 8.7 MG/DL Sodium Level 142 MEQ/L Potassium Level 3.9 MEQ/L Chloride Level 110 MEQ/L Carbon Dioxide Level 27.4 MEQ/L Anion Gap 5 MEQ/L Estimat Glomerular Filtration Rate 88 ML/MIN Human Chorionic Gonadotropin, Quant LESS THAN 1 MIU/ML Urine Color YELLOW Urine Turbidity HAZY Urine pH 6.0 Urine Specific [place] 1.024 Urine Protein NEG mg/dL Urine Glucose (UA) NEG mg/dL Urine Ketones NEG mg/dL Urine Occult Blood SMALL Urine Nitrite NEG Urine Bilirubin NEG Urine Urobilinogen 2.0 mg/dL Urine Leukocyte Esterase SMALL Urine RBC 2 /hpf Urine WBC 17 /hpf Urine Squamous Epithelial Cells 4 /hpf Urine Bacteria RARE /hpf Urine Mucus MOD /lpf Microscopic Urinalysis Comment CULTURE INDICATED MDM Medical Decision Making Medical Screen Exam Complete: Yes Emergency Medical Condition: Yes Medical Record Reviewed: Yes Differential Diagnosis Cyst, pain from menstruation, UTI, intrauterine Narrative Course CBC & BMP Diagram 10/12/17 10:20 Calcium Level 8.7 Urinalysis shows pyuria Ultrasound is essentially unremarkable Pain could be related to menstruation. Urinary tract infection is a possibility. Ventral vaginosis is also considered. The patient is HIV positive and reports noncompliance with antiretroviral medication. We can see there is a CD4 count of over 400 about 1 year ago. In this scenario patient will be provided with Macrobid and a course of Flagyl. Return precautions discussed. Benefits of compliance with HAART discussed with the patient who states that she intended to comply with it however lost Medicaid coverage. She reports she had been taking it until a few months ago. Diagnosis Primary Impression: Urinary tract infection Qualified Codes: N30.00 - Acute cystitis without hematuria Referrals: Anna Marie Vuong MD call for appointment Med/Other Pt SpecificInfo: Prescription(s) given Scripts Sulfamethoxazole-Trimethoprim (Bactrim DS) 800-160 Mg Tab 1 TAB PO BID for Infection, #6 TAB 0 Refills Prov: Link Gregg MD 10/12/17 Sulfamethoxazole-Trimethoprim (Bactrim DS) 800-160 Mg Tab 1 TAB PO BID for Infection, #6 TAB 0 Refills Prov: Link Gregg MD 10/12/17 Metronidazole (Flagyl) 500 Mg Tab 500 MG PO BID for Infection for 7 Days, #14 TAB 0 Refills Prov: Link Gregg MD 10/12/17 Disposition: 01 DISCHARGE HOME Condition: Stable Link Gregg MD Oct 12, 2017 12:02
[2017-10-12 12:27] VITALS: BP 103/64; PULSE 80; RESP 16; O2SAT 98
[2017-10-12 13:26] VITALS: BP 111/61; PULSE 82; RESP 16; O2SAT 98
== END 2017-10-12 13:49 | disposition home or self-care (01) ==
LOC: NEPD 09:40
DX: N30.00 Acute cystitis without hematuria (principal); F17.200 Nicotine dependence, unspecified, uncomplicated; Z21 Asymptomatic human immunodeficiency virus [HIV] infection status
CPT/HCPCS: 76830; 76856; 80048; 81001; 84702; 84703; 85025; 87086; 93975; 96360; 96361; 99285; J7030